=== PATIENT | female | born 1950 | race Caucasian/White ===

== ENCOUNTER → 2017-10-12 09:31 | Outpatient (CLI) | payer MEDICARE, SELFPAY ==
[2017-10-12 12:33] LABS: Color, Urine Yellow (Yellow); Glucose, Dipstick Normal (Normal); Ketone-Dipstick Negative (Negative); Leukocyte Esterase-Dipstick Negative /ul (Negative); Nitrite-Dipstick Negative (Negative); Occult Blood-Urine Negative /ul (Negative); Protein-Dipstick Negative (Negative); Urine Bilirubin Dipstick Negative (Negative); Urine Clarity Clear (Clear); Urine Urobilinogen Normal (Normal)
[2017-10-12 12:35] LABS: Absolute Lymphocyte Count 1.97 X10^3/ul (0.83-4.51); Absolute Neutrophil Count 4.3 X10^3/uL (2.0-7.7); Basophil# 0.03 X10^3/uL; Basophil% 0.4 % (0-1); Eosinophil# 0.16 X10^3/uL; Eosinophils% 2.3 % (0-5); Hematocrit 41.5 % (37-47); Hemoglobin 13.8 g/dl (12.0-15.0); Lymphocyte # 1.97 X10^3/ul (4.0); Lymphocyte % 28.6 % (19-41); Mean Corp Hgb Conc 33.3 g/gl (32-36); Mean Corpuscular Hgb 27.9 pg (27.0-32.0); Mean Corpuscular Volume 83.8 fL (81-99); Mean Platelet Vol. 11.7 fl (6.2-12.0); Monocyte# 0.46 X10^3/uL; Monocyte% 6.7 % (0-10); Neutrophil # 4.25 X10^3/uL (2.7-7.7); Neutrophil % 61.7 % (47-70); Platelet Count 227 K/mm3 (150-450); RBC Distribution Width CV 13.6 % (11.6-14.6); RBC Distribution Width SD 41.5 fl (35.1-43.9); Red Blood Count 4.95 M/mm3 (4.2-5.4); White Blood Count 6.9 K/mm3 (4.4-11.0)
[2017-10-12 12:36] LABS: POSITIVE COUNT NO; POSITIVE DIFFERENTIAL NO; POSITIVE MORPHOLOGY NO
[2017-10-12 12:51] LABS: ALB/GLOB Ratio 1.1 RATIO (0.9-2.4); AST(SGOT) 12 U/L (15-37); Alanine Aminotransfer ALT/SGPT 27 U/L (13-56); Albumin, Serum 3.7 g/dL (3.2-5.0); Alkaline Phosphatase 41 U/L (45-117); Anion Gap 8 (5-15); BUN 23 mg/dL (7-18); BUN/Creat Ratio 37.8 RATIO (10-20); Chloride 109 mmol/L (98-107); Cholesterol 162 mg/dL (200); Creatinine, Serum 0.61 mg/dL (0.55-1.02); EST Glomerular Filtration Rate 105 mL/min (>60); Est Glom Filt Rate - Afr Amer 127 mL/min (>60); Globulin 3.3 g/dL (2.2-4.2); Glucose 88 mg/dL (74-106); High Density Lipoprotein 59 mg/dL; Potassium 4.2 mmol/L (3.5-5.1); Sodium Level 143 mmol/L (136-145); Triglycerides 100 mg/dL; Very Low Density Lipoprotein 20 mg/dL (5-40)
== END ==
DX: Z00.00 Encounter for general adult medical examination without abnormal findings (principal); I10 Essential (primary) hypertension; E78.5 Hyperlipidemia, unspecified
CPT/HCPCS: 36415; 80053; 80061; 81002; 85025

== ENCOUNTER → 2017-11-14 09:57 | Outpatient (CLI) | payer MEDICARE, SELFPAY ==
--- NOTE | 2017-11-14 09:59 | HPBI_ITS ---
MAMMOGRAPHY - BILATERAL SCREENING 3-D MOIRA SYNTHESIS REASON FOR EXAM: Female, 67 years old. Bilateral Screening 3-D tomosynthesis PERTINENT HISTORY: History of benign breast biopsy.. TECHNIQUE: 2-D mammograms and 3-D Moira synthesis of the breast (s) were performed. CAD was performed. COMPARISON: 11/11/2016 FINDINGS: The breast composition is composed of scattered fibroglandular density. Scattered benign calcifications are seen. No dense spiculated masses or suspicious microcalcifications are identified. No architectural distortion is identified. There is no skin thickening or retraction. There has been no significant change since the prior study. There has been no significant change since the prior study. HPBI/SCREENING MAMM (CAD), BILAT IMPRESSION: No mammographic signs of malignancy. Routine yearly mammograms recommended. ASSESSMENT CATEGORY: BIRADS Category 2: Benign. A letter regarding these results will be sent to the patient by the facility within 30 days. FOLLOW UP RECOMMENDATION: Yearly follow up mammogram recommended. (A) Approximately 10% of breast cancers are not detected by mammography. A normal mammogram should not delay biopsy of a clinically suspicious abnormality. Electronically Signed: Willi Paige MD at 12:43 EDT , Service support ,
== END ==
DX: Z12.31 Encounter for screening mammogram for malignant neoplasm of breast (principal)
CPT/HCPCS: 77063; 77067

== ENCOUNTER → 2018-04-11 10:16 | Outpatient (CLI) | payer MEDICARE, SELFPAY ==
[2018-04-11 12:09] LABS: AST(SGOT) 15 U/L (15-37); Alanine Aminotransfer ALT/SGPT 20 U/L (13-56); Albumin, Serum 3.4 g/dL (3.2-5.0); Alkaline Phosphatase 39 U/L (45-117); Anion Gap 6 (5-15); BUN 16 mg/dL (7-18); BUN/Creat Ratio 22.9 RATIO (10-20); Bilirubin, Direct 0.08 mg/dL (0.00-0.30); Calcium,Total 8.4 mg/dL (8.5-10.1); Chloride 112 mmol/L (98-107); Cholesterol 160 mg/dL (200); EST Glomerular Filtration Rate 89 mL/min (>60); Est Glom Filt Rate - Afr Amer 108 mL/min (>60); Globulin 3.3 g/dL (2.2-4.2); Glucose 90 mg/dL (74-106); High Density Lipoprotein 56 mg/dL; Protein, Total 6.7 g/dL (6.4-8.2); Sodium Level 144 mmol/L (136-145); Triglycerides 152 mg/dL; Very Low Density Lipoprotein 30 mg/dL (5-40)
== END ==
PROVIDERS: Visit Provider Family Medicine
DX: E78.5 Hyperlipidemia, unspecified (principal); E87.6 Hypokalemia
CPT/HCPCS: 36415; 80048; 80061; 80076

== ENCOUNTER → 2018-10-09 08:34 | Outpatient (CLI) | payer MEDICARE, SELFPAY ==
[2018-10-09 10:42] LABS: AST(SGOT) 16 U/L (15-37); Alanine Aminotransfer ALT/SGPT 28 U/L (13-56); Albumin, Serum 3.5 g/dL (3.2-5.0); Alkaline Phosphatase 35 U/L (45-117); Bilirubin, Direct 0.11 mg/dL (0.00-0.30); Cholesterol 164 mg/dL (200); Globulin 3.3 g/dL (2.2-4.2); High Density Lipoprotein 56 mg/dL; Protein, Total 6.8 g/dL (6.4-8.2); Triglycerides 130 mg/dL; Very Low Density Lipoprotein 26 mg/dL (5-40)
== END ==
PROVIDERS: Referring Provider Family Medicine; Visit Provider Family Medicine
DX: E78.5 Hyperlipidemia, unspecified (principal); I10 Essential (primary) hypertension
CPT/HCPCS: 36415; 80061; 80076

== ENCOUNTER → 2018-11-20 12:11 | Outpatient (CLI) | payer MEDICARE, SELFPAY ==
--- NOTE | 2018-11-20 12:12 | BI_ITS ---
MAMMOGRAPHY - BILATERAL SCREENING REASON FOR EXAM: Female, 68 years old. Routine annual screening examination. PERTINENT HISTORY: Non-contributory. Remote left stereotactic breast biopsy. TECHNIQUE: Digital bilateral breast johnnie (3D mammographic acquisition) in the CC and MLO projections. 2-D mediolateral oblique (MLO) and craniocaudad (CC) views of both breasts were obtained. CAD: Full Field Digital Mammography with Computer Added Detection was performed. COMPARISON: Comparison is made with prior study dated November 14, 2017 and November 11, 2016. FINDINGS: Breast Composition: There are scattered areas of fibroglandular density. There are no dominant masses or suspicious calcifications. Stable benign-appearing bilateral axillary lymph nodes. No other significant abnormalities are identified. There has been no significant change since the prior study. BI/SCREENING MAMM (CAD), BILAT IMPRESSION: Stable bilateral screening mammogram. Yearly follow-up mammogram recommended. (A) ASSESSMENT CATEGORY: BIRADS Category 2: Benign. A letter regarding these results will be sent to the patient by the facility within 30 days. Approximately 10% of breast cancers are not detected by mammography. A normal mammogram should not delay biopsy of a clinically suspicious abnormality. [id number] Electronically Signed: Ck Salamanca, at 14:24 EDT , Service support ,
== END ==
PROVIDERS: Referring Provider Family Medicine; Visit Provider Family Medicine
DX: Z12.31 Encounter for screening mammogram for malignant neoplasm of breast (principal)
CPT/HCPCS: 77063; 77067

== ENCOUNTER → 2019-04-10 | Outpatient (CLI) | payer MEDICARE, SELFPAY ==
[2019-04-10 10:20] LABS: Absolute Lymphocyte Count 1.95 X10^3/uL (0.83-4.51); Absolute Neutrophil Count 5.2 X10^3/uL (2.0-7.7); Basophil# 0.07 X10^3/uL; Basophil% 0.9 % (0-1); Eosinophil# 0.18 X10^3/uL; Eosinophils% 2.3 % (0-5); Hematocrit 43.9 % (37-47); Lymphocyte # 1.95 X10^3/ul (4.0); Lymphocyte % 24.6 % (19-41); Mean Corp Hgb Conc 31.9 g/dL (32-36); Mean Corpuscular Hgb 27.3 pg (27.0-32.0); Mean Corpuscular Volume 85.7 fL (81-99); Mean Platelet Vol. 11.7 fl (6.2-12.0); Monocyte# 0.51 X10^3/uL; Monocyte% 6.4 % (0-10); NRBC Flagged by Analyzer 0 % (0-5); Neutrophil % 65.4 % (47-70); Platelet Count 212 K/mm3 (150-450); RBC Distribution Width CV 13.6 % (11.6-14.6); RBC Distribution Width SD 42.5 fl (35.1-43.9); Red Blood Count 5.12 M/mm3 (4.2-5.4); White Blood Count 7.9 K/mm3 (4.4-11.0)
[2019-04-10 10:42] LABS: Color, Urine Yellow (Yellow); Glucose, Dipstick Normal (Normal); Ketone-Dipstick Negative (Negative); Leukocyte Esterase-Dipstick 25 /ul (Negative); Nitrite-Dipstick Negative (Negative); Occult Blood-Urine Negative /ul (Negative); Protein-Dipstick Negative (Negative); Urine Bilirubin Dipstick Negative (Negative); Urine Clarity Sl. Cloudy (Clear); Urine Urobilinogen Normal (Normal)
[2019-04-10 10:53] LABS: ALB/GLOB Ratio 1.1 RATIO (0.9-2.4); AST(SGOT) 14 U/L (15-37); Alanine Aminotransfer ALT/SGPT 25 U/L (13-56); Albumin, Serum 3.4 g/dL (3.2-5.0); Alkaline Phosphatase 34 U/L (45-117); Anion Gap 6 (5-15); BUN 14 mg/dL (7-18); BUN/Creat Ratio 20.5 RATIO (10-20); Calcium,Total 8.8 mg/dL (8.5-10.1); Chloride 113 mmol/L (98-107); Cholesterol 151 mg/dL (200); Creatinine, Serum 0.68 mg/dL (0.55-1.02); EST Glomerular Filtration Rate 92 mL/min (>60); Est Glom Filt Rate - Afr Amer 111 mL/min (>60); Globulin 3.2 g/dL (2.2-4.2); Glucose 97 mg/dL (74-106); High Density Lipoprotein 52 mg/dL; Potassium 3.9 mmol/L (3.5-5.1); Protein, Total 6.6 g/dL (6.4-8.2); Sodium Level 144 mmol/L (136-145); Triglycerides 138 mg/dL; Very Low Density Lipoprotein 28 mg/dL (5-40)
== END | disposition home or self-care (01) ==
LOC: MTLAB 08:09
PROVIDERS: Referring Provider Family Medicine; Visit Provider Family Medicine
DX: Z00.00 Encounter for general adult medical examination without abnormal findings (principal); I10 Essential (primary) hypertension; E78.5 Hyperlipidemia, unspecified
CPT/HCPCS: 36415; 80053; 80061; 81002; 85025

== ENCOUNTER 2019-10-10 11:23 | Emergency (ER) | payer MEDICARE, SELFPAY ==
[2019-10-10 11:23] VITALS: BP 201/83; PULSE 73; RESP 16; TEMP 36.6; O2SAT 96; BMI 38.9
--- NOTE | 2019-10-10 11:39 | RAD_ITS ---
STUDY: X-RAY - LEFT KNEE REASON FOR EXAM: Female, 69 years old. PAIN S/P FALL TECHNIQUE: 4 view(s) of the knee. COMPARISON: None. FINDINGS: Normal visualized distal femur. Normal visualized proximal tibia and fibula. Normal proximal tibiofibular articulation. 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 Normal lateral femorotibial compartment. Normal patellofemoral articulation. There is a moderate volume joint effusion. The soft tissue structures are unremarkable. RAD/Knee 4 or More Views IMPRESSION: Effusion, as described above. MRI may be useful. Electronically Signed: Rinku Baig MD at 12:46 EST Tel , Service support ,
--- NOTE | 2019-10-10 11:43 | ED.VIS.GEN ---
History of Present Illness Chief Complaint: Lower Extremity Injury Informant: Patient Onset: Yesterday Context: Gradual Onset Timing: Continuous Current Severity: Moderate Maximum Severity: Moderate Narrative: The patient is a 69-year-old female on no anticoagulants that presents to the emergency department with left knee injury. Patient was in her normal state of health. She was at her daughter's apartment yesterday. She was trying to get down off the stairs. She tripped over a mat and landed on her right side with her left knee twisted underneath her. She did not strike her head or lose consciousness. She states the pain is actually improved today, but she still had a lot of tenderness in her knee especially with bearing weight. She is otherwise been in her normal state of health. Prior similar symptoms: No Recent Illness/Hospitalization: No Past Medical History - Allergies and Home Meds Allergies/Adverse Reactions: Allergies Penicillins Allergy (Verified 10/10/19 11:25) Tisha Primary Care Physician: Amanda Brown DO [STAFF PHYSICIAN] - Prior records reviewed: Yes Past Medical History: - - Hypertension Surgical History: noncontributory Smoking Status: Current every day smoker Review of Systems General: Denies: Chills, Fever, Sweats Eyes: Denies: Visual changes - bilaterally, Diplopia ENT: Denies: Rhinorrhea, Sore throat Cardiovascular: Denies: Chest pain, Palpitations Respiratory: Denies: Dyspnea, Cough, Dyspnea on exertion Gastrointestinal: Denies: Abdominal pain, Nausea, Vomiting, Diarrhea, Melena, Hematochezia Genitourinary: Denies: Dysuria, Hematuria, Frequency Musculoskeletal: Denies: Back pain, Extremity Pain Skin: Denies: Rash, Wounds Neurological: Denies: Headache, Weakness, Numbness Physical Exam Vital Signs/Narrative: Vital Signs Temp Pulse Resp BP Pulse Ox 10/10/19 11:23 97.8 F 73 16 201/83 H 96 Inital Vital Signs reviewed: Yes General: Well nourished, Well developed, No Acute Distress Head: Normocephalic, Atraumatic Eyes: Perrl, EOMI ENT: Moist mucous membranes, No rhinorrhea Neck: Supple, Nontender Cardiovascular: Regular rate, Regular rhythm, No murmurs Respiratory: No distress, CTA bilaterally, Chest nontender Abdomen: Soft, Nontender, Nondistended, Normal bowel sounds Back: Nontender, Normal Inspection Extremities: Tenderness - Tenderness over the left medial compartment of the knee. Extension is preserved. No gross laxity. Normal pulses. Small contusion. Skin: Normal color, No rash Neurological: Alert, Oriented x3, Cranial nerves II-XII grossly intact, Normal Strength, Normal Sensation Psychological: Normal affect, Normal Mood Diagnostic/Tx/Re-eval Clinical Impression(s) from Imaging Studies Knee X-Ray 10/10/19 11:39 IMPRESSION: Effusion, as described above. MRI may be useful. Electronically Signed: Rinku Baig MD at 12:46 EST Tel , Service support , - Medical Decision Making The patient presents with left knee injury. She twisted her knee underneath her. She did not land directly on it. She does have a small effusion but her extension is preserved. Plain films were obtained without evidence of acute fracture. This does confirm the small to moderate-sized effusion. There is no evidence of infectious process. I do not feel this joint needs drained. Patient was placed in an Bernardo wrap. She is able to bear weight. She will be given outpatient orthopedic follow-up as she may have underlying meniscus or ligamentous damage. There is no gross laxity of the knee. Comfortable with this plan of care. Impression 1. Left knee sprain with effusion ED Disposition - Plan for ED Patient: Instructions: Knee Effusion Referrals: Amanda Brown DO [STAFF PHYSICIAN] -
[2019-10-10 13:09] VITALS: BP 189/87
== END 2019-10-10 13:09 | disposition home or self-care (01) ==
LOC: ED 12:21
PROVIDERS: Emergency Provider Emergency Medicine
DX: S83.92XA Sprain of unspecified site of left knee, initial encounter (principal); I10 Essential (primary) hypertension; W18.09XA Striking against other object with subsequent fall, initial encounter; F17.210 Nicotine dependence, cigarettes, uncomplicated; Z79.899 Other long term (current) drug therapy
CPT/HCPCS: 73564; 99282

== ENCOUNTER → 2019-10-12 09:27 | Outpatient (CLI) | payer MEDICARE, SELFPAY ==
[2019-10-10 11:23] VITALS: BMI 38.9
[2019-10-12 13:17] LABS: AST(SGOT) 14 U/L (15-37); Alanine Aminotransfer ALT/SGPT 30 U/L (13-56); Albumin, Serum 3.4 g/dL (3.2-5.0); Alkaline Phosphatase 35 U/L (45-117); Anion Gap 4 (5-15); BUN 13 mg/dL (7-18); Calcium,Total 9.1 mg/dL (8.5-10.1); Chloride 112 mmol/L (98-107); Cholesterol 179 mg/dL (200); Creatinine, Serum 0.68 mg/dL (0.55-1.02); EST Glomerular Filtration Rate 91 mL/min (>60); Est Glom Filt Rate - Afr Amer 110 mL/min (>60); Globulin 3.5 g/dL (2.2-4.2); Glucose 84 mg/dL (74-106); High Density Lipoprotein 60 mg/dL; Protein, Total 6.9 g/dL (6.4-8.2); Sodium Level 144 mmol/L (136-145); Triglycerides 163 mg/dL; Very Low Density Lipoprotein 33 mg/dL (5-40)
== END ==
PROVIDERS: Referring Provider Family Medicine; Visit Provider Family Medicine
DX: E78.5 Hyperlipidemia, unspecified (principal); E87.5 Hyperkalemia
CPT/HCPCS: 36415; 80053; 80061

== ENCOUNTER → 2020-01-25 12:49 | Outpatient (CLI) | payer MEDICARE, SELFPAY ==
--- NOTE | 2020-01-25 12:51 | BI_ITS ---
MAMMOGRAPHY - BILATERAL SCREENING REASON FOR EXAM: Female, 69 years old. Routine annual screening examination. PERTINENT HISTORY: Non-contributory. There are multiple left stereotactic breast biopsy. TECHNIQUE: Digital bilateral breast moira (3D mammographic acquisition) in the CC and MLO projections. 2-D mediolateral oblique (MLO) and craniocaudad (CC) views of both breasts were obtained. CAD: Full Field Digital Mammography with Computer Added Detection was performed. COMPARISON: Comparison is made with prior examination dated November 20, 2018 and November 14, 2017. FINDINGS: Breast Composition: There are scattered areas of fibroglandular density. There are no dominant masses or suspicious calcifications. Stable benign-appearing bilateral axillary lymph nodes. No other significant abnormalities are identified. There has been no significant change since the prior study. BI/SCREEN MAMM (CAD) W/MOIRA BILAT IMPRESSION: Stable bilateral screening mammogram. Yearly follow-up mammogram recommended. (A) ASSESSMENT CATEGORY: BIRADS Category 2: Benign. A letter regarding these results will be sent to the patient by the facility within 30 days. Approximately 10% of breast cancers are not detected by mammography. A normal mammogram should not delay biopsy of a clinically suspicious abnormality. [id number] Electronically Signed: Ck Salamanca, at 14:07 EDT , Service support ,
== END ==
PROVIDERS: Referring Provider Family Medicine; Visit Provider Family Medicine
DX: Z12.31 Encounter for screening mammogram for malignant neoplasm of breast (principal)
CPT/HCPCS: 77063; 77067

== ENCOUNTER → 2020-04-11 09:48 | Outpatient (CLI) | payer MEDICARE, SELFPAY ==
[2020-04-11 12:17] LABS: Absolute Lymphocyte Count 2.05 X10^3/uL (0.83-4.51); Absolute Neutrophil Count 4.5 X10^3/uL (2.0-7.7); Basophil# 0.03 X10^3/uL; Basophil% 0.4 % (0-1); Eosinophil# 0.14 X10^3/uL; Eosinophils% 1.9 % (0-5); Hematocrit 47.2 % (37-47); Lymphocyte # 2.05 X10^3/ul (4.0); Lymphocyte % 28.6 % (19-41); Mean Corp Hgb Conc 31.8 g/dL (32-36); Mean Corpuscular Hgb 27.6 pg (27.0-32.0); Mean Corpuscular Volume 86.8 fL (81-99); Mean Platelet Vol. 11.4 fl (6.2-12.0); Monocyte# 0.46 X10^3/uL; Monocyte% 6.4 % (0-10); NRBC Flagged by Analyzer 0 % (0-5); Neutrophil # 4.46 X10^3/uL (2.7-7.7); Neutrophil % 62.1 % (47-70); Platelet Count 261 K/mm3 (150-450); RBC Distribution Width CV 13.7 % (11.6-14.6); RBC Distribution Width SD 43.1 fl (35.1-43.9); Red Blood Count 5.44 M/mm3 (4.2-5.4); White Blood Count 7.2 K/mm3 (4.4-11.0)
[2020-04-11 12:21] LABS: Color, Urine Yellow (Yellow); Glucose, Dipstick Normal (Normal); Ketone-Dipstick Negative (Negative); Leukocyte Esterase-Dipstick Negative /ul (Negative); Nitrite-Dipstick Negative (Negative); Occult Blood-Urine Negative /ul (Negative); Protein-Dipstick Negative (Negative); Urine Bilirubin Dipstick Negative (Negative); Urine Clarity Sl. Cloudy (Clear); Urine Urobilinogen Normal (Normal)
[2020-04-11 12:48] LABS: AST(SGOT) 16 U/L (15-37); Alanine Aminotransfer ALT/SGPT 29 U/L (13-56); Albumin, Serum 3.5 g/dL (3.2-5.0); Alkaline Phosphatase 37 U/L (45-117); Anion Gap 4 (5-15); BUN 13 mg/dL (7-18); BUN/Creat Ratio 20.9 RATIO (10-20); Calcium,Total 8.6 mg/dL (8.5-10.1); Chloride 111 mmol/L (98-107); Cholesterol 169 mg/dL (200); Creatinine, Serum 0.62 mg/dL (0.55-1.02); EST Glomerular Filtration Rate 101 mL/min (>60); Est Glom Filt Rate - Afr Amer 123 mL/min (>60); Globulin 3.4 g/dL (2.2-4.2); Glucose 89 mg/dL (74-106); High Density Lipoprotein 53 mg/dL; Protein, Total 6.9 g/dL (6.4-8.2); Sodium Level 141 mmol/L (136-145); Triglycerides 167 mg/dL; Very Low Density Lipoprotein 33 mg/dL (5-40)
== END ==
PROVIDERS: Referring Provider Family Medicine; Visit Provider Family Medicine
DX: Z00.00 Encounter for general adult medical examination without abnormal findings (principal); I10 Essential (primary) hypertension; E78.5 Hyperlipidemia, unspecified
CPT/HCPCS: 36415; 80053; 80061; 81002; 85025

== ENCOUNTER → 2020-10-03 08:51 | Outpatient (CLI) | payer MEDICARE, SELFPAY ==
[2020-10-03 10:44] LABS: ALB/GLOB Ratio 1.1 RATIO (0.9-2.4); AST(SGOT) 20 U/L (15-37); Alanine Aminotransfer ALT/SGPT 31 U/L (13-56); Albumin, Serum 3.6 g/dL (3.2-5.0); Alkaline Phosphatase 40 U/L (45-117); Anion Gap 5 (5-15); BUN 14 mg/dL (7-18); BUN/Creat Ratio 19.5 RATIO (10-20); Calcium,Total 9.1 mg/dL (8.5-10.1); Chloride 109 mmol/L (98-107); Cholesterol 166 mg/dL (200); Creatinine, Serum 0.72 mg/dL (0.55-1.02); EST Glomerular Filtration Rate 86 mL/min (>60); Est Glom Filt Rate - Afr Amer 104 mL/min (>60); Globulin 3.4 g/dL (2.2-4.2); Glucose 99 mg/dL (74-106); High Density Lipoprotein 55 mg/dL; Potassium 4.3 mmol/L (3.5-5.1); Sodium Level 141 mmol/L (136-145); Triglycerides 160 mg/dL; Very Low Density Lipoprotein 32 mg/dL (5-40)
== END ==
PROVIDERS: Referring Provider Family Medicine; Visit Provider Family Medicine
DX: I10 Essential (primary) hypertension (principal); E78.5 Hyperlipidemia, unspecified
CPT/HCPCS: 36415; 80053; 80061

== ENCOUNTER → 2021-01-26 10:52 | Outpatient (CLI) | payer MEDICARE, SELFPAY ==
--- NOTE | 2021-01-26 10:55 | BI_ITS ---
MAMMOGRAPHY - BILATERAL SCREENING REASON FOR EXAM: Female, 70 years old. Routine annual screening examination. PERTINENT HISTORY: Non-contributory. Remote left stereotactic breast biopsy. TECHNIQUE: Digital bilateral breast moira (3D mammographic acquisition) in the CC and MLO projections. 2-D mediolateral oblique (MLO) and craniocaudad (CC) views of both breasts were obtained. CAD: Full Field Digital Mammography with Computer Added Detection was performed. COMPARISON: Comparison is made with prior study dated 01/25/2020 and 11/20/2018. FINDINGS: Breast Composition: There are scattered areas of fibroglandular density. There are no dominant masses or suspicious calcifications. Stable benign-appearing bilateral axillary lymph nodes. No other significant abnormalities are identified. There has been no significant change since the prior study. BI/SCRN MAMM (CAD)W/MOIRA BILAT IMPRESSION: Stable bilateral screening mammogram. Yearly follow-up mammogram recommended. (A) ASSESSMENT CATEGORY: BIRADS Category 2: Benign. A letter regarding these results will be sent to the patient by the facility within 30 days. Approximately 10% of breast cancers are not detected by mammography. A normal mammogram should not delay biopsy of a clinically suspicious abnormality. [id number] Electronically Signed: Ck Salamanca MD at 12:12 EDT , Service support ,
== END ==
PROVIDERS: Referring Provider Family Medicine; Visit Provider Family Medicine
DX: Z12.31 Encounter for screening mammogram for malignant neoplasm of breast (principal)
CPT/HCPCS: 77063; 77067

== ENCOUNTER → 2021-03-30 08:42 | Outpatient (CLI) | payer MEDICARE, SELFPAY ==
[2021-03-30 10:53] LABS: ALB/GLOB Ratio 1.2 RATIO (0.9-2.4); AST(SGOT) 20 U/L (15-37); Alanine Aminotransfer ALT/SGPT 30 U/L (13-56); Albumin, Serum 3.7 g/dL (3.2-5.0); Alkaline Phosphatase 33 U/L (45-117); Anion Gap 5 (5-15); BUN 21 mg/dL (7-18); BUN/Creat Ratio 29.3 RATIO (10-20); Chloride 109 mmol/L (98-107); Cholesterol 174 mg/dL (200); Creatinine, Serum 0.72 mg/dL (0.55-1.02); EST Glomerular Filtration Rate 86 mL/min (>60); Est Glom Filt Rate - Afr Amer 104 mL/min (>60); Globulin 3.1 g/dL (2.2-4.2); Glucose 102 mg/dL (74-106); High Density Lipoprotein 59 mg/dL; Protein, Total 6.8 g/dL (6.4-8.2); Sodium Level 142 mmol/L (136-145); Triglycerides 142 mg/dL; Very Low Density Lipoprotein 28 mg/dL (5-40)
== END ==
PROVIDERS: Referring Provider Family Medicine; Visit Provider Family Medicine
DX: I10 Essential (primary) hypertension (principal); E78.5 Hyperlipidemia, unspecified
CPT/HCPCS: 36415; 80053; 80061

== ENCOUNTER 2021-08-31 09:53 | Outpatient (CLI) | payer MEDICARE, SELFPAY ==
[2021-08-31 12:09] LABS: Absolute Lymphocyte Count 2.07 X10^3/uL (0.83-4.51); Basophil# 0.03 X10^3/uL; Basophil% 0.4 % (0-1); Eosinophil# 0.13 X10^3/uL; Eosinophils% 1.9 % (0-5); Hematocrit 45.5 % (37-47); Hemoglobin 14.7 g/dL (12.0-15.0); Lymphocyte # 2.07 X10^3/ul (0.83-4.51); Lymphocyte % 30.6 % (19-41); Mean Corp Hgb Conc 32.3 g/dL (32-36); Mean Corpuscular Hgb 27.7 pg (27.0-32.0); Mean Corpuscular Volume 85.8 fL (81-99); Mean Platelet Vol. 10.6 fl (6.2-12.0); Monocyte# 0.47 X10^3/uL; NRBC Flagged by Analyzer 0 % (0-5); Neutrophil # 4.04 X10^3/uL (2.7-7.7); Neutrophil % 59.8 % (47-70); Platelet Count 228 K/mm3 (150-450); RBC Distribution Width CV 13.6 % (11.6-14.6); RBC Distribution Width SD 42.7 fl (35.1-43.9); White Blood Count 6.8 K/mm3 (4.4-11.0)
== END 2021-08-31 23:59 | disposition short-term general hospital (02) ==
LOC: MTLAB 09:54
PROVIDERS: Referring Provider Family Medicine; Visit Provider Family Medicine
DX: Z00.00 Encounter for general adult medical examination without abnormal findings (principal); I10 Essential (primary) hypertension; E78.5 Hyperlipidemia, unspecified
CPT/HCPCS: 36415; 85025

== ENCOUNTER 2022-04-08 11:00 | Emergency (ER) | payer MEDICARE, SELFPAY ==
[2022-04-08 11:02] VITALS: BP 212/84; PULSE 72; RESP 18; TEMP 36.1; O2SAT 96; BMI 43.7
--- NOTE | 2022-04-08 11:14 | EKG12_ITS ---
Test Reason : SOB Blood Pressure : / mmHG Vent. Rate : 078 BPM Atrial Rate : 078 BPM P-R Int : 132 ms QRS Dur : 092 ms QT Int : 382 ms P-R-T Axes : 035 040 068 degrees QTc Int : 435 ms Normal sinus rhythm Incomplete right bundle branch block Borderline ECG Confirmed by CHANDA RANDOLPH, RALEIGH ([id number]), business editor BRAYAN MARCELO ([id number]) on 04/09/2022 9:42:44 AM Referred By: BRISA Confirmed By:RALEIGH ARMAS MD
--- NOTE | 2022-04-08 11:15 | EDS_ITS ---
HPI History of Present Illness Chief Complaint: Shortness of Breath Detail of Chief Complaint: Exertional dyspnea and hypertension Informant: patient and spouse/S.O. Narrative Narrative: Patient presents to the emergency department with several month history of shortness of breath with activity and exertion. Patient was seen for her annual exam by her PCP a week ago and noted that her blood pressure was elevated and was asked to track her blood pressure at home. Patient states she just remembered again yesterday and they checked her blood pressure and it was 221/99. Today her pressure at home was 209/99. Primary care physician balbina ecotimended patient be evaluated the emergency department. Patient denies headache or chest pain. She does describe exertional dyspnea and lack of energy for several months. She denies chest pain or pressure or heaviness. She does intermittently describe some discomfort in her left arm. She has no heart history. Patient does describe fatigue and falling asleep easily. Prior similar symptoms: No PFSH PFSH Home Medications fenofibrate nanocrystallized 145 mg tablet 145 mg PO QHS 10/10/19 [History Last Taken Unknown] lisinopril 10 mg tablet 10 mg PO DAILY 10/10/19 [History Last Taken Unknown] simvastatin 20 mg tablet 20 mg PO DAILY 10/10/19 [History Last Taken Unknown] amlodipine 5 mg tablet (Norvasc) 5 mg PO DAILY #30 tabs 04/08/22 [Rx Last Taken Unknown] lisinopril 20 mg tablet 20 mg PO DAILY #30 tabs 04/08/22 [Rx Last Taken Unknown] Allergy/AdvReac Type Severity Reaction Status Date / Time Penicillins Allergy Hives Verified 04/08/22 11:00 red dye Allergy Itching Verified 04/08/22 11:02 Social History Smoking Status: Former smoker ROS ROS ED Review of Systems ROS Unobtainable: other Constitutional Constitutional ED: Reports lethargy; Denies chills, fever(s), sweats or weight loss Eyes Eyes: Denies blurry vision, change in vision or diplopia ENT ENT ED: Denies rhinorrhea or sore throat Cardiovascular Cardiovascular: Denies chest pain, orthopnea or racing heartbeat Respiratory/Chest Respiratory/Chest: Reports dyspnea and dyspnea on exertion; Denies cough, orthopnea or sputum Gastrointestinal Gastrointestinal: Denies abdominal pain, diarrhea, nausea or vomiting Genitourinary Genitourinary ED: Denies dysuria, hematuria or urinary frequency Musculoskeletal Musculoskeletal: Denies arthralgias, back pain, myalgias or neck pain Integumentary Denies abscess, Abrasions or rash Neurologic Neurologic: Reports weakness; Denies headache(s) Psychiatric Psychiatric: Denies anxiety, depression or suicidal thoughts Endocrine Endocrinology: Denies polydipsia, polyphagia or polyuria Hematologic/Lymphatic Hematologic/Lymphatic: Denies easy bleeding, easy bruising or lymphadenopathy Allergic/Immunologic Allergic/Immunologic ED: Denies mouth swelling, tongue swelling or urticaria EXAM Physical Exam Const Vital Signs: 04/08/22 11:02 04/08/22 11:41 Temperature 97.0 F L Temperature Source Temporal Pulse Rate 72 Respiratory Rate 18 Respiratory Effort Normal Non-Labored Respiratory Depth Normal Respiratory Pattern Normal Blood Pressure 212/84 H Blood Pressure Mean 126 Pulse Ox 96 Oxygen Delivery Method Room Air Room Air Positive well nourished and well developed General Appearance ED: well developed and NAD HEENT Reports TM's clear and moist mucous membranes normocephalic and atraumatic; Negative for trauma or tenderness Tympanic Membrane ED: Yes TM's clear Eyes PERRL and EOMs intact bilaterally General Eye ED: Negative for pale conjunctiva or scleral icterus Neck no lymphadenopathy, supple and no JVD General: Negative for tenderness Chest Wall inspection of chest normal and palpation of chest normal Chest: Negative for tenderness Resp normal respiratory effort and clear to auscultation bilaterally Effort and Inspection: Negative for respiratory distress or pain with movement Auscultation: Negative for rhonchi, wheezes or diminished lung sounds Cardio regular rate, regular rhythm, S1 normal heart sound, S2 normal heart sound and no murmurs Peripheral Pulses: pulses 2+ throughout GI normal to inspection, nondistended, normoactive bowel sounds, soft to palpation, non-tender, non-distended and no masses Back/Spine no CVA tenderness and no thoracic nor lumbar tenderness Extremity normal to inspection General Extremety ED: Negative for edema General Extremity: Negative for edema Neuro oriented x3, CN's II-XII intact bilaterally, no sensory deficits noted and gait normal Sensorium / Orientation: awake, alert, oriented to person, oriented to place and oriented to time Motor Exam: strength 5/5 throughout and strength abnormal Psych mental status grossly normal Skin no rashes or lesions noted and no wounds MDM MDM MDM Narrative Medical decision making narrative: IV line established on arrival. Patient placed on a cafeteria monitor. EKG and lab work-up unremarkable. Urinalysis was normal. At this point there is no signs of endorgan damage. Patient case was discussed with her primary care ph ysician Dr. Scott who recommended increasing her lisinopril to 20 mg daily and adding 5 mg of Norvasc daily. Patient was given a dose of Norvasc in the emergency department. Patient to follow-up with her primary care physician and keep a journal of her blood pressures. Etiology of her exertional dyspnea is unclear although she thought it might be related to her weight gain. She is not been having chest pain. She is got normal EKG and cardiac enzymes and feel she is low risk for acute coronary syndrome. She will follow-up with her primary care physician regarding this as well. Lab Data Attestation: I reviewed the patient's lab results. Labs: Laboratory Results - last 24 hr 04/08/22 04/08/22 04/08/22 11:20 11:35 11:35 WBC 7.2 RBC 5.00 Hgb 13.8 Hct 43.0 MCV 86.0 MCH 27.6 MCHC 32.1 RDW Std Deviation 41.5 RDW Coeff of Arti 13.3 Plt Count 246 MPV 11.0 Immature Gran % (Auto) 0.700 Neut % (Auto) 64.6 Lymph % (Auto) 27.3 Person % (Auto) 5.4 Eos % (Auto) 1.4 Baso % (Auto) 0.6 Absolute Neuts (auto) 4.6 Absolute Lymphs (auto) 1.96 Nucleated RBC % 0 Sodium 143 Potassium 3.9 Chloride 111 H Carbon Dioxide 28.0 Anion Gap 4 L BUN 21 H Creatinine 0.73 Estim Creat Clear Calc 41.99 Est GFR (MDRD) Af Amer 102 Est GFR (MDRD) Non-Af 84 BUN/Creatinine Ratio 28.9 H Glucose 150 H Calcium 9.3 Troponin I High Sens 4 Urine Color Yellow Urine Clarity Sl. Cloudy Urine pH 6.0 Ur Specific [place] 1.010 Urine Protein Negative Urine Glucose (UA) Normal Urine Ketones Negative Urine Occult Blood Negative Urine Nitrite Negative Urine Bilirubin Negative Urine Urobilinogen Normal Ur Leukocyte Esterase Negative Urine RBC 0 SEEN Urine WBC 0 SEEN Ur Squamous Epith Cells 0-5 SEEN Urine Bacteria 0 SEEN Urine Mucus 0 SEEN Radiography Diagnostic Testing: Clinical Impression(s) from Imaging Studies Chest X-Ray 04/08/22 11:45 IMPRESSION: No acute abnormality is seen. Electronically Signed: Ck Salamanca MD at 12:11 EDT , 1 view chest x-ray obtained interpreted by myself no acute disease process. Radiology in agreement. EKG Initial EKG: Attestation: I personally reviewed and interpreted this EKG as follows: Comments: Sinus rhythm with a rate of 78 bpm with no acute ST segment changes Discharge Plan Triage Chief Complaint: Shortness of Breath Other Complaint: Hypertension ED Provider: Jackie Geiger Dx/Rx/DC Orders Clinical Impression: Hypertension, Exertional dyspnea Instructions: ED Hypertension, Established Prescriptions: New amlodipine [Norvasc] 5 mg tablet 5 mg PO DAILY Qty: 30 0RF lisinopril 20 mg tablet 20 mg PO DAILY Qty: 30 0RF No Action simvastatin 20 MG tablet 20 mg PO DAILY lisinopril 10 MG tablet 10 mg PO DAILY fenofibrate nanocrystallized 145 MG tablet 145 mg PO QHS Primary Care Provider: Rigo Scott Referrals: Rigo Scott [Primary Care Provider] - 5-7 Days Disposition Disposition: Home, Self Care
[2022-04-08 11:40] LABS: Bacteria 0 SEEN /hpf (None Seen); Mucous, Urine 0 SEEN /hpf (<or=2+); Red Blood Cells-Urine 0 SEEN /hpf (0-5); White Blood Cells 0 SEEN /hpf (0-5)
--- NOTE | 2022-04-08 11:45 | RAD_ITS ---
STUDY: X-RAY CHEST REASON FOR EXAM: Female, 71 years old. Hypertension. TECHNIQUE: Single AP portable view of the chest. COMPARISON: None. FINDINGS: EKG electrodes are seen. The lungs are clear and expanded. There is no demonstrated pleural abnormality. Normal size heart. Normal mediastinum and janet. Normal visualized pulmonary arteries. There is atherosclerotic calcification of the aortic arch with tortuosity. Normal visualized thoracic spine. Normal visualized ribs, clavicles, and shoulders. There is no demonstrated abnormality of the visualized soft tissue structures of the upper abdomen. RAD/Chest 1 View (Portable) IMPRESSION: No acute abnormality is seen. Electronically Signed: Ck Salamanca MD at 12:11 EDT ,
[2022-04-08 11:46] LABS: Color, Urine Yellow (Yellow); Glucose, Dipstick Normal (Normal); Ketone-Dipstick Negative (Negative); Leukocyte Esterase-Dipstick Negative /ul (Negative); Nitrite-Dipstick Negative (Negative); Occult Blood-Urine Negative /ul (Negative); Protein-Dipstick Negative (Negative); Urine Bilirubin Dipstick Negative (Negative); Urine Clarity Sl. Cloudy (Clear); Urine Urobilinogen Normal (Normal)
[2022-04-08 11:46] LABS: Absolute Lymphocyte Count 1.96 X10^3/uL (0.83-4.51); Absolute Neutrophil Count 4.6 X10^3/uL (2.0-7.7); Basophil# 0.04 X10^3/uL; Basophil% 0.6 % (0-1); Eosinophils% 1.4 % (0-5); Hemoglobin 13.8 g/dL (12.0-15.0); Lymphocyte # 1.96 X10^3/ul (0.83-4.51); Lymphocyte % 27.3 % (19-41); Mean Corp Hgb Conc 32.1 g/dL (32-36); Mean Corpuscular Hgb 27.6 pg (27.0-32.0); Monocyte# 0.39 X10^3/uL; Monocyte% 5.4 % (0-10); NRBC Flagged by Analyzer 0 % (0-5); Neutrophil # 4.63 X10^3/uL (2.7-7.7); Neutrophil % 64.6 % (47-70); Platelet Count 246 K/mm3 (150-450); RBC Distribution Width CV 13.3 % (11.6-14.6); RBC Distribution Width SD 41.5 fl (35.1-43.9); White Blood Count 7.2 K/mm3 (4.4-11.0)
[2022-04-08 12:01] LABS: Anion Gap 4 (5-15); BUN 21 mg/dL (7-18); BUN/Creat Ratio 28.9 RATIO (10-20); Calcium,Total 9.3 mg/dL (8.5-10.1); Chloride 111 mmol/L (98-107); Creatinine, Serum 0.73 mg/dL (0.55-1.02); EST Glomerular Filtration Rate 84 mL/min (>60); Est Glom Filt Rate - Afr Amer 102 mL/min (>60); Estimated Creatinine Clearance 41.99 ml/min; Glucose 150 mg/dL (74-106); Potassium 3.9 mmol/L (3.5-5.1); Sodium Level 143 mmol/L (136-145); Troponin-I HS 4 pg/mL (3.0-54.0)
[2022-04-08 12:09] LABS: Squamous Epithelial Cells - UA 0-5 SEEN /hpf (5-10)
[2022-04-08] MEDS: amLODIPine 5 MG Tablet PO (13:14)
[2022-04-08 13:18] VITALS: BP 190/91; PULSE 65; RESP 18; O2SAT 99
== END 2022-04-08 13:18 | disposition home or self-care (01) ==
PROVIDERS: Emergency Provider Emergency Medicine; Visit Provider Emergency Medicine
DX: I10 Essential (primary) hypertension (principal); Z79.899 Other long term (current) drug therapy; Z87.891 Personal history of nicotine dependence
CPT/HCPCS: 71045; 80048; 81001; 84484; 85025; 93005; 99283; A4216

== ENCOUNTER → 2023-10-17 | Outpatient (CLI) | payer MEDICARE, SELFPAY ==
[2023-10-17 13:39] LABS: Absolute Lymphocyte Count 1.94 X10^3/uL (0.83-4.51); Absolute Neutrophil Count 5.7 X10^3/uL (2.0-7.7); Basophil# 0.05 X10^3/uL; Basophil% 0.6 % (0-1); Eosinophil# 0.16 X10^3/uL; Eosinophils% 1.9 % (0-5); Hematocrit 43.4 % (37-47); Hemoglobin 13.2 g/dL (12.0-15.0); Lymphocyte # 1.94 X10^3/ul (0.83-4.51); Lymphocyte % 22.8 % (19-41); Mean Corp Hgb Conc 30.4 g/dL (32-36); Mean Corpuscular Hgb 26.1 pg (27.0-32.0); Mean Corpuscular Volume 85.8 fL (81-99); Mean Platelet Vol. 11.1 fl (6.2-12.0); Monocyte# 0.63 X10^3/uL; Monocyte% 7.4 % (0-10); NRBC Flagged by Analyzer 0 % (0-5); Neutrophil # 5.69 X10^3/uL (2.7-7.7); Neutrophil % 66.7 % (47-70); Platelet Count 256 K/mm3 (150-450); RBC Distribution Width CV 14.1 % (11.6-14.6); RBC Distribution Width SD 43.8 fl (35.1-43.9); Red Blood Count 5.06 M/mm3 (4.2-5.4); White Blood Count 8.5 K/mm3 (4.4-11.0)
[2023-10-17 14:13] LABS: AST(SGOT) 16 U/L (15-37); Alanine Aminotransfer ALT/SGPT 31 U/L (13-56); Albumin, Serum 3.5 g/dL (3.2-5.0); Alkaline Phosphatase 36 U/L (45-117); Anion Gap 2 (5-15); BUN 24 mg/dL (7-18); BUN/Creat Ratio 31.5 RATIO (10-20); Calcium,Total 10.2 mg/dL (8.5-10.1); Chloride 106 mmol/L (98-107); Creatinine, Serum 0.76 mg/dL (0.55-1.02); EST Glomerular Filtration Rate 80 mL/min (>60); Est Glom Filt Rate - Afr Amer 96 mL/min (>60); Globulin 3.5 g/dL (2.2-4.2); Glucose 84 mg/dL (74-106); Potassium 4.1 mmol/L (3.5-5.1); Sodium Level 140 mmol/L (136-145); Thyroid Stim Hormone (TSH) 0.57 uIU/mL (0.358-3.74)
--- OUTSIDE RECORDS SUMMARY | 2023-10-17 20:54 | XMS RPT_ITS | CCD ---
Author Name Unknown Address [address] [place] [address] Organization [facility] Care Team Providers Care Toolmaker Name Role Phone Rigo Parker Unavailable Unavailable Unavailable Primary Care Provider Unavailabraham Parker MD, Rigo Wan Primary Care Provider Keith RANDOLPH, Rigo Wan Primary Care Provider Keith RANDOLPH, Rigo Wan Primary Care Provider Keith RANDOLPH, Rigo Wan Primary Care Provider Keith RANDOLPH, Rigo Wan Primary Care Provider RIGO PARKER Primary Care Unavailab le KEITHRIGO Referring Unavailab le KEITH, RIGO WAN Referring Unavailab le KEITH, RIGO WAN Primary Care Unavailab le KEITHRIGO Referring Unavailab le KEITH, RIGO WAN Primary Care Unavailab le KEITHRIGO Attending Unavailab le KEITH, RIGO WAN Primary Care Unavailab le KEITHRIGO Attending Unavailab le KEITH, RIGO WAN Primary Care Unavailab le KEITH, RIGO WAN Attending Unavailab le KEITH, RIGO WAN Primary Care Unavailab le KEITHRIGO Attending Unavailab le KEITH, RIGO WAN Primary Care Unavailab le Allergies Allergy Classification Reported Allergen(s) Allergy Type Date of Onset Reaction(s) Facility (20 sources) Contrast media; Translations: [RED DYE] Drug Allergy 03-17-2017 Unknown [facility] (3 sources) Penicillins; Translations: [PENICILLINS] Drug Allergy 03-17-2017 Unknown [facility] (18 sources) Penicillins Drug Allergy 03-17-2017 Unknown [facility] Medications Current Medications Medication Drug Class(es) Dates Sig (Normalized) Sig (Original) amLODIPine 10 mg oral tablet (19 sources) Dihydropyridine Calcium Channel Angelia Start: 10-27-2022 End: 01-31-2024 take 1 tablet by mouth once daily amLODIPine (NORVASC) 10 mg tablet Take 1 tablet by mouth once daily. 90 tablet 2 01/31/2023 01/31/2024 Active Completed/Discontinued Medications Medication Drug Class(es) Dates Sig (Normalized) Sig (Original) calcium carbonate 1500 mg / cholecalciferol 0.01 mg oral tablet (20 sources) Vitamin D Start: 03-17-2017 End: 10-06-2022 take 1 tablet by mouth twice daily calcium carbonate 600 mg-cholecalcifero l 400 units 600 mg-10 mcg (400 unit) tab Take 1 tablet by mouth twice daily. 180 tablet 3 10/06/2022 Active Problems Active Problems Problem Classification Problem Date Documented Da te Episodic/Chronic Disorders of lipid metabolism (20 sources) Hyperlipidemia; Translations: [Hyperlipidemia, unspecified] Onset: 03-17-2017 01-04-2022 Chronic Essential hypertension (20 sources) Benign hypertension; Translations: [Essential (primary) hypertension] Onset: 03-17-2017 01-04-2022 Chronic Malaise and fatigue (1 source) Fatigue; Translations: [Other fatigue] 04-06-2023 Episodic Nutritional deficiencies (3 sources) Vitamin D deficiency; Translations: [Vitamin D deficiency, unspecified] Onset: 04-06-2023 04-06-2023 Chronic Residual codes; unclassified (1 source) Bilateral lower limb edema; Translations: [Localized edema] 04-06-2023 Episodic Unclassified (1 source) Unknown / UNK(Unknown) Onset: 04-06-2017 Past or Other Problems Problem Classification Problem Date Documented Da te Episodic/Chronic Administrative/social admission (1 source) Other specified counseling; Translations: [Counseling regarding advanced directives] Onset: 10-06-2022 Episodic Fluid and electrolyte disorders (19 sources) Hypokalemia; Translations: [Hypokalemia] Onset: 04-05-2018 01-04-2022 Episodic Other connective tissue disease (19 sources) Pain in left foot; Translations: [Pain in left foot] Onset: 06-27-2019 01-04-2022 Episodic Other screening for suspected conditions (not mental disorders or infectious disease) (20 sources) Patient encounter status; Translations: [Encounter for screening for malignant neoplasm of colon] Onset: 10-06-2017 01-04-2022 Episodic Other skin disorders (19 sources) Inflamed seborrheic keratosis; Translations: [Inflamed seborrheic keratosis] Onset: 05-10-2019 01-04-2022 Episodic Other skin disorders (19 sources) Skin tag; Translations: [Other hypertrophic disorders of the skin] Onset: 05-10-2019 01-04-2022 Episodic Unclassified (1 source) E78.5 Onset: 04-06-2017 Results Test Name Value Interpretation Reference Range Facil ity Vital Signs Date Time Vital Sign Value Performing Clinician Faci lity 04-06-2023 10:04-0400 Body height 157.5 cm Rigo Parker MD Work Phone: [facility] 04-06-2023 10:04-0400 Body temperature 96.8 [degF] Rigo Parker MD Work Phone: [facility] 04-06-2023 10:04-0400 Body weight 111.58 kg Rigo Parker MD Work Phone: [facility] 04-06-2023 10:04-0400 Diastolic blood pressure 82 mm[Hg] Rigo Parker MD Work Phone: [facility] 04-06-2023 10:04-0400 Heart rate 70 /min Rigo Parker MD Work Phone: [facility] 04-06-2023 10:04-0400 Respiratory rate 18 /min Rigo Parker MD Work Phone: [facility] 04-06-2023 10:04-0400 SaO2% (BldA) [Mass fraction] 95 % Rigo Parker MD Work Phone: [facility] 04-06-2023 10:04-0400 Systolic blood pressure 132 mm[Hg] Rigo Parker MD Work Phone: [facility] 11-29-2022 09:36-0400 Body height 157.5 cm Rigo Parker MD Work Phone: [facility] 11-29-2022 09:36-0400 Body temperature 97.11 [degF] Rigo Parker MD Work Phone: [facility] 11-29-2022 09:36-0400 Body weight 110.45 kg Rigo Parker MD Work Phone: [facility] 11-29-2022 09:36-0400 Diastolic blood pressure 84 mm[Hg] Rigo Parker MD Work Phone: [facility] 11-29-2022 09:36-0400 Heart rate 68 /min Rigo Parker MD Work Phone: [facility] 11-29-2022 09:36-0400 Respiratory rate 18 /min Rigo Parker MD Work Phone: [facility] 11-29-2022 09:36-0400 SaO2% (BldA) [Mass fraction] 96 % Rigo Parker MD Work Phone: [facility] 11-29-2022 09:36-0400 Systolic blood pressure 138 mm[Hg] Rigo Parker MD Work Phone: [facility] 10-27-2022 14:42-0500 Diastolic blood pressure 94 mm[Hg] Rigo Parker MD Work Phone: [facility] 10-27-2022 14:42-0500 Systolic blood pressure 152 mm[Hg] Rigo Parker MD Work Phone: [facility] 10-27-2022 14:39-0500 Body height 157.5 cm Rigo Parker MD Work Phone: [facility] 10-27-2022 14:39-0500 Body temperature 97 [degF] Rigo Parker MD Work Phone: [facility] 10-27-2022 14:39-0500 Body weight 110.77 kg Rigo Parker MD Work Phone: [facility] 10-27-2022 14:39-0500 Heart rate 78 /min Rigo Parker MD Work Phone: [facility] 10-27-2022 14:39-0500 Respiratory rate 18 /min Rigo Parker MD Work Phone: [facility] 10-27-2022 14:39-0500 SaO2% (BldA) [Mass fraction] 93 % Rigo Parker MD Work Phone: [facility] 10-06-2022 10:16-0500 Body height 157.5 cm Rigo Parker MD Work Phone: [facility] 10-06-2022 10:16-0500 Body temperature 97.59 [degF] Rigo Parker MD Work Phone: [facility] 10-06-2022 10:16-0500 Body weight 110.95 kg Rigo Parker MD Work Phone: [facility] 10-06-2022 10:16-0500 Diastolic blood pressure 88 mm[Hg] Rigo Parker MD Work Phone: [facility] 10-06-2022 10:16-0500 Heart rate 70 /min Rigo Parker MD Work Phone: [facility] 10-06-2022 10:16-0500 Respiratory rate 18 /min Rigo Parker MD Work Phone: [facility] 10-06-2022 10:16-0500 SaO2% (BldA) [Mass fraction] 98 % Rigo Parker MD Work Phone: [facility] 10-06-2022 10:16-0500 Systolic blood pressure 136 mm[Hg] Rigo Parker MD Work Phone: [facility] 05-19-2022 11:30-0400 Body height 157.5 cm Rigo Parker MD Work Phone: [facility] 05-19-2022 11:30-0400 Body temperature 97.39 [degF] Rigo Parker MD Work Phone: [facility] 05-19-2022 11:30-0400 Body weight 107.32 kg Rigo Parker MD Work Phone: [facility] 05-19-2022 11:30-0400 Diastolic blood pressure 90 mm[Hg] Rigo Parker MD Work Phone: [facility] 05-19-2022 11:30-0400 Heart rate 66 /min Rigo Parker MD Work Phone: [facility] 05-19-2022 11:30-0400 Respiratory rate 18 /min Rigo Parker MD Work Phone: [facility] 05-19-2022 11:30-0400 SaO2% (BldA) [Mass fraction] 94 % Rigo Parker MD Work Phone: [facility] 05-19-2022 11:30-0400 Systolic blood pressure 152 mm[Hg] Rigo Parker MD Work Phone: [facility] 04-12-2022 15:12-0400 Body temperature 96.91 [degF] Rigo Parker MD Work Phone: [facility] 04-12-2022 15:12-0400 Body weight 107.86 kg Rigo Parker MD Work Phone: [facility] 04-12-2022 15:12-0400 Diastolic blood pressure 98 mm[Hg] Rigo Parker MD Work Phone: [facility] 04-12-2022 15:12-0400 Heart rate 76 /min Rigo Parker MD Work Phone: [facility] 04-12-2022 15:12-0400 Respiratory rate 14 /min Rigo Parker MD Work Phone: [facility] 04-12-2022 15:12-0400 SaO2% (BldA) [Mass fraction] 95 % Rigo Parker MD Work Phone: [facility] 04-12-2022 15:12-0400 Systolic blood pressure 150 mm[Hg] Rigo Parker MD Work Phone: [facility] 03-31-2022 10:37-0400 Body height 157.5 cm Rigo Parker MD Work Phone: [facility] 03-31-2022 10:37-0400 Body temperature 97.5 [degF] Rigo Parker MD Work Phone: [facility] 03-31-2022 10:37-0400 Body weight 109.14 kg Rigo Parker MD Work Phone: [facility] 03-31-2022 10:37-0400 Diastolic blood pressure 96 mm[Hg] Rigo Parker MD Work Phone: [facility] 03-31-2022 10:37-0400 Heart rate 64 /min Rigo Parker MD Work Phone: [facility] 03-31-2022 10:37-0400 Respiratory rate 14 /min Rigo Parker MD Work Phone: [facility] 03-31-2022 10:37-0400 SaO2% (BldA) [Mass fraction] 96 % Rigo Parker MD Work Phone: [facility] 03-31-2022 10:37-0400 Systolic blood pressure 150 mm[Hg] Rigo Parker MD Work Phone: [facility] 01-04-2022 13:30-0400 Body temperature 95.7 [degF] Rigo Parker MD Work Phone: [facility] 01-04-2022 13:30-0400 Body weight 97.98 kg Rigo Parker MD Work Phone: [facility] 01-04-2022 13:30-0400 Diastolic blood pressure 80 mm[Hg] Rigo Parker MD Work Phone: [facility] 01-04-2022 13:30-0400 Heart rate 68 /min Rigo Parker MD Work Phone: [facility] 01-04-2022 13:30-0400 Respiratory rate 18 /min Rigo Parker MD Work Phone: [facility] 01-04-2022 13:30-0400 SaO2% (BldA) [Mass fraction] 96 % Rigo Parker MD Work Phone: [facility] 01-04-2022 13:30-0400 Systolic blood pressure 132 mm[Hg] Rigo Parker MD Work Phone: [facility] Encounters Encounter Date Encounter Type Care Provider Facility Start: 05-27-2023 Patient encounter procedure [facility] Provider [facility] Department Start: 05-12-2023 End: 05-12-2023 ambulatory RIGO PARKER Facility:[facility] Start: 04-14-2023 Telephone encounter Rigo Parker MD Work Phone: [facility] Procedures Date Procedure Procedure Detail Performing Clinician Start: 04-13-2023 Lipid 1996 panel - S alpesh or Plasma [facility] Provider Start: 10-27-2022 Follow-up visit Follow Up RIGO PARKER Start: 04-20-2022 Mammography Rigo guadalupe MD Work Phone: Start: 04-26-2019 Colonoscopy Rigo guadalupe MD Work Phone: Plan of Treatment Date Care Activity Detail Author Start: 04-13-2028 Lipid 1996 panel - Serum or Plasma Lipid Screening [facility] Start: 04-13-2028 LIPID SCREEN LIPID SCREEN [facility] Start: 10-08-2027 LIPID SCREEN LIPID SCREEN [facility] Start: 03-31-2027 LIPID SCREEN LIPID SCREEN [facility] Start: 04-13-2026 DIABETES SCREEN DIABETES SCREEN [facility] Start: 04-13-2026 Diabetes Screening Diabetes Screenin g [facility] Start: 10-08-2025 DIABETES SCREEN DIABETES SCREEN [facility] Start: 03-31-2025 DIABETES SCREEN DIABETES SCREEN [facility] Start: 05-12-2024 Mammography Mammogram Screening [facility] Start: 04-06-2024 ANNUAL PCP TEAM CONTRACTS ANALYST JACQUELINE DISEASE VISIT ANNUAL PCP TEAM CHRONIC DISEASE VISIT [facility] Start: 11-30-2023 ANNUAL PCP TEAM CONTRACTS ANALYST JACQUELINE DISEASE VISIT ANNUAL PCP TEAM CHRONIC DISEASE VISIT [facility] Start: 10-28-2023 ANNUAL PCP TEAM CONTRACTS ANALYST JACQUELINE DISEASE VISIT ANNUAL PCP TEAM CHRONIC DISEASE VISIT [facility] Start: 10-06-2023 ANNUAL PCP TEAM CONTRACTS ANALYST JACQUELINE DISEASE VISIT ANNUAL PCP TEAM CHRONIC DISEASE VISIT [facility] Start: 10-06-2023 BP CONTROLLED (<130/80) BP CONTROLLE D (<130/80) [facility] Start: 05-19-2023 ANNUAL PCP TEAM CONTRACTS ANALYST JACQUELINE DISEASE VISIT ANNUAL PCP TEAM CHRONIC DISEASE VISIT [facility] Start: 04-26-2023 Colonoscopy COLONOSCOPY [facility] Start: 04-26-2023 COLORECTAL CANCER SCREENING COLORECTAL CANCER SCREENING [facility] Start: 04-22-2023 Influenza vaccination C [facility] Start: 04-20-2023 Mammography MAMMOGRAM [facility] Start: 04-12-2023 ANNUAL PCP TEAM CONTRACTS ANALYST JACQUELINE DISEASE VISIT ANNUAL PCP TEAM CHRONIC DISEASE VISIT [facility] Start: 04-06-2023 End: 06-06-2023 25-hydroxyvitamin D3 [Mass/volume] in Serum or Plasma VITAMIN D 25 HYDROXY Lab Routine Vitamin D deficiency Expected: 04/06/2023, Expires: 06/06/2023 [facility] Work Phone: Immunizations Immunization Date Immunization Notes Care Provider [facility] 08-04-2022 influenza, injectabl e, quadrivalent, preservative free Rigo Parker MD Work Phone: [facility] 08-04-2022 influenza virus vacc ine, unspecified formulation [facility] Provider [facility] 06-03-2021 influenza (HD-IIV4) vaccine, age 65+ yr, high dose, quadrivalent, PF (FLUZONE HIGH-DOSE) Rigo Parker MD Work Phone: [facility] 06-25-2020 influenza (aIIV4) vaccine, age 65+ yr, quadrivalent, PF (FLUAD QUAD) Rigo Parker MD Work Phone: [facility] 05-11-2019 influenza, high dose seasonal, preservative-free Rigo Parker MD Work Phone: [facility] 05-11-2019 pneumococcal polysaccharide vaccine, 23 valent Rigo Parker MD Work Phone: [facility] 06-21-2018 influenza, high dose seasonal, preservative-free Rigo Parker MD Work Phone: [facility] 06-21-2018 pneumococcal conjuga te vaccine, 13 valent Rigo Parker MD Work Phone: [facility] 06-07-2017 influenza, injectabl e, quadrivalent, preservative free Rigo Parker MD Work Phone: [facility] 06-07-2017 zoster vaccine, live Rigo Parker MD Work Phone: [facility] Payers Date Payer Category Payer Medicare [id number] 2021 Medicare [id number] 2009 Unknown [id number] Social History Date Type Detail Facility Start: 01-04-2022 Tobacco smoking stat [facility] Smokes tobacco daily [facility] Start: 1950 Sex Assigned At Not on file C [facility] Start: 03-31-2022 Tobacco smoking stat [facility] Ex-smoker [facility] History of tobacco use Current smoker [facility] History of tobacco use Cigarette Smoker C [facility] Start: 03-31-2022 End: 04-06-2023 Cigarettes smoked current (pack per day) - Reported 1.5 [facility] Start: 03-31-2022 Tobacco use and exposure Smoke less tobacco non-user [facility] Start: 03-31-2022 End: 04-06-2023 Alcohol intake Current drinker of alcohol (finding) [facility] Start: 03-31-2022 History SDOH Alcohol Comment occasional [facility] Start: 03-21-2022 End: 05-19-2022 Exposure to SARS-CoV-2 (event) Not sure [facility] Start: 10-06-2022 History SDOH Alcohol Frequency 2 [facility] Start: 10-06-2022 History SDOH Alcohol Std Drinks 1 [facility] Start: 10-06-2022 History SDOH Social Connections Phone 5 [facility] Start: 10-06-2022 History SDOH Social Connections Living 3 [facility] Start: 10-06-2022 History SDOH Physica l Activity MPS 6 [facility] Start: 10-06-2022 End: 04-06-2023 Social connection and isolation panel [facility] Do you belong to any clubs or organizations such as oriental orthodox groups, unions, fraternal or athletic groups, or school groups? No [facility] Are you now , , , , never or living with a partner? [facility] How often to you hav e a drink containing alcohol? Monthly or less [facility] How many standard dr inks containing alcohol do you have on a typical day? 1 or 2 [facility] How often do you hav e 6 or more drinks on 1 occasion? Never [facility] How hard is it for y ou to pay for the very basics like food, housing, medical care, and heating Not hard at all [facility] Do you feel stress - tense, restless, nervous, or anxious, or unable to sleep at night because your mind is troubled all the time - these days [OSQ] Not at all [facility] (I/We) worried wheth er (my/our) food would run out before (I/we) got money to buy more. Never true [facility] NEGATED: Highlighted rowStart: NINF History of tobacco use Passive smoker [facility] Clinical Notes 03-31-2022 to 05-12-2023 Telephone Encounter - Stephania Gao LPN - 04/14/2023 12:35 PM EDTTelephone Encounter - Olga Upton LPN - 04/08/2023 10:07 AM Rigo Brand MD - 04/06/2023 10:19 AM EDT Note Date & Type Note Facility 05-12-2023 Note HNO ID: [id number] Author: Chaim Muñoz Mammo Tech Service: ? Author Type: Technologist Type: Progress Notes Filed: 05/12/2023 10:23 AM Note Text: Radiology Service Progress Note PATIENT NAME: Sade Ovalle DATE OF SERVICE: May 12, 2023 TIME: 10:23 AM PATIENT IDENTITY VERIFICATION COMPLETED USING TWO (2) IDENTIFIERS: Name and Date of confirmed by patient verbally. FALL SCREENING: Has the patient had 2 falls in the last year or 1 fall with injury or currently using an Ambulatory Assistive Device (Walker, Cane, Wheelchair, Crutches, etc.)? No PATIENT GENDER DATA: Female. status: : No status: NO. PATIENT RELEVANT IMPLANT DATA REVIEWED: Not Applicable RADIOLOGY DEPARTMENT: Mammography PERIPHERAL IV DATA: Not applicable SIGNED BY: Michael Sparks May 12, 2023 10:23 AM [facility] 04-14-2023 Miscellaneous Notes Letter has been sent to patient to inform them that referral was sent to: Dr. Sue [address] [phone] Fax confirmation received Stephania Gao LPN April 14, 2023 12:35 PM documented in this encounter [facility] 04-08-2023 Miscellaneous Notes Spoke with patient who requested the compression stocking Rx be sent to [facility] in [place] on [address]. Rx successfully faxed to [facility] at fax # [phone], confirmation received, and all faxed information to be scanned into patient's chart. Olga Upton LPN April 08, 2023 10:10 AM documented in this encounter [facility] 04-06-2023 Note HNO ID: [id number] Author: Rigo Parker MD Service: ? Author Type: Physician Type: Progress Notes Filed: 04/07/2023 9:28 AM Note Text: This note was created using Rostelecomriter. Subjective Sade Ovalle is a 72 year old female presenting today for 6-month follow-up of chronic medical conditions. Sade has a history of hypertension and continues on amlodipine and Zestoretic. She is also compliant with antilipid medications. Her blood pressures have been controlled at home 120s/80s, however Sade does endorse bilateral lower extremity edema and aching for the last 3 to 4 months. She denies other cardiac symptoms including shortness of breath, chest pain, headache, and blurred vision. She does report that the edema resolves overnight. Sade has not tried anything at home to remedy edema and does not wear compression stockings. Sade does endorse consumption of processed foods including boxed/canned foods and soups although she does not add salt to her food. Sade was educated about high sodium content in processed foods and that it is best to avoid as much as possible. She does endorse significant weight gain over the last several years. She has gained 3 pounds since her most recent visit in November. Sade does report a sedentary lifestyle without presence of regular aerobic exercise although she does participate in a weekly [employer] league. Sade states that she is always tired. This has also been persistent over the last 3 to 4 months. She sleeps well at night despite occasionally waking to void. She does endorse daytime napping on a regular basis. Review of Systems Constitutional: Positive for fatigue. HENT: Negative. Eyes: Negative. Respiratory: Negative. Cardiovascular: Positive for leg swelling. Negative for chest pain and palpitations. Bilateral leg swelling and aching. Worse in the evening. Does resolve overnight. Gastrointestinal: Negative. Endocrine: Negative. Genitourinary: Negative. Musculoskeletal: Negative. Skin: Negative. Allergic/Immunologic: Negative. Neurological: Negative. Hematological: Negative. Psychiatric/Behavioral: Negative. Objective BP 132/82 (BP Site: Right Arm, BP Position: Sitting, BP Cuff Size: Regular Adult) Pulse 70 Temp 36 ?C (96.8 ?F) (Temporal) Resp 18 Ht 157.5 cm (5' 2 ) Wt 111.6 kg (246 lb) SpO2 95% BMI 44.99 kg/m? Physical Exam Constitutional: General: She is awake. She is not in acute distress. Appearance: Normal appearance. She is well-developed. She is obese. HENT: Head: Normocephalic and atraumatic. Right Ear: External ear normal. Left Ear: External ear normal. Nose: Nose normal. Mouth/Throat: Mouth: Mucous membranes are moist. Pharynx: Oropharynx is clear. Eyes: Extraocular Movements: Extraocular movements intact. Pupils: Pupils are equal, round, and reactive to light. Cardiovascular: Rate and Rhythm: Normal rate and regular rhythm. Pulses: Normal pulses. Heart sounds: Normal heart sounds. No murmur heard. Pulmonary: Effort: Pulmonary effort is normal. No respiratory distress. Breath sounds: Normal breath sounds. Abdominal: General: Bowel sounds are normal. Palpations: Abdomen is soft. Musculoskeletal: General: No tenderness, deformity or signs of injury. Normal range of motion. Cervical back: Normal range of motion and neck supple. Right lower leg: No tenderness. 1+ Pitting Edema present. Left lower leg: No tenderness. 1+ Pitting Edema present. Skin: General: Skin is warm and dry. Capillary Refill: Capillary refill takes less than 2 seconds. Findings: No erythema. Neurological: General: No focal deficit present. Mental Status: She is alert and oriented to person, place, and time. Motor: No weakness. Gait: Gait normal. Psychiatric: Mood and Affect: Mood normal. Behavior: Behavior normal. Behavior is cooperative. Assessment and Plan Encounter Diagnosis ICD-10-CM 1. Hypertension, essential I10 lisinopril-hydroCHLOROthiazide (ZESTORETIC) 20-25 mg per tablet COMP METABOLIC PANEL 2. Edema of both lower extremities R60.0 3. Pure hypercholesterolemia E78.00 LIPID PANEL BASIC 4. Fatigue, unspecified type R53.83 5. Vitamin D deficiency E55.9 VITAMIN D 25 HYDROXY 6. Screening for colon cancer Z12.11 CONSULT TO GASTROENTEROLOGY CANCELED: IRA 7. Screening mammogram for breast cancer Z12.31 [facility] SCREENING (I10) Hypertension, essential (primary encounter diagnosis) Comment: Stable. Blood pressure 132/82 in clinic today. Plan: lisinopril-hydroCHLOROthiazide (ZESTORETIC) 20-25 mg per tablet, COMP METABOLIC PANEL Labs as above. Continue present medications. Continue to track blood pressure at home regularly and record. Notify office if blood pressure is consistently greater than 140/90. Initiate diet modifications including restriction of high-sodium, processed foods. (R60.0) Edema of both lower extremities Comment: Ongoing. (more content not included)... [facility] 04-06-2023 Note HNO ID: [id number] Author: Stephania Gao LPN Service: ? Author Type: LICENSED NURSE Type: Progress Notes Filed: 04/07/2023 9:28 AM Note Text: Patient is in office today for 6 month exam. Patient states she has been experiencing bilateral food edema. Also, states that she is always tired. Stephania Gao LPN April 06, 2023 10:04 AM [facility] 04-06-2023 History of Present illness Narrative This note was created using NoteWriter. Subjective Sade Ovalle is a 72 year old female presenting today for 6-month follow-up of chronic medical conditions. Sade has a history of hypertension and continues on amlodipine and Zestoretic. She is also compliant with antilipid medications. Her blood pressures have been controlled at home 120s/80s, however Sade does endorse bilateral lower extremity edema and aching for the last 3 to 4 months. She denies other cardiac symptoms including shortness of breath, chest pain, headache, and blurred vision. She does report that the edema resolves overnight. Sade has not tried anything at home to remedy edema and does not wear compression stockings. Sade does endorse consumption of processed foods including boxed/canned foods and soups although she does not add salt to her food. Sade was educated about high sodium content in processed foods and that it is best to avoid as much as possible. She does endorse significant weight gain over the last several years. She has gained 3 pounds since her most recent visit in November. Sade does report a sedentary lifestyle without presence of regular aerobic exercise although she does participate in a weekly [employer] league. Sade states that she is always tired. This has also been persistent over the last 3 to 4 months. She sleeps well at night despite occasionally waking to void. She does endorse daytime napping on a regular basis. Review of Systems Constitutional: Positive for fatigue. HENT: Negative. Eyes: Negative. Respiratory: Negative. Cardiovascular: Positive for leg swelling. Negative for chest pain and palpitations. Bilateral leg swelling and aching. Worse in the evening. Does resolve overnight. Gastrointestinal: Negative. Endocrine: Negative. Genitourinary: Negative. Musculoskeletal: Negative. Skin: Negative. Allergic/Immunologic: Negative. Neurological: Negative. Hematological: Negative. Psychiatric/Behavioral: Negative. Objective BP 132/82 (BP Site: Right Arm, BP Position: Sitting, BP Cuff Size: Regular Adult) Pulse 70 Temp 36 C (96.8 F) (Temporal) Resp 18 Ht 157.5 cm (5' 2 ) Wt 111.6 kg (246 lb) SpO2 95% BMI 44.99 kg/m Physical Exam Constitutional: General: She is awake. She is not in acute distress. Appearance: Normal appearance. She is well-developed. She is obese. HENT: Head: Normocephalic and atraumatic. Right Ear: External ear normal. Left Ear: External ear normal. Nose: Nose normal. Mouth/Throat: Mouth: Mucous membranes are moist. Pharynx: Oropharynx is clear. Eyes: Extraocular Movements: Extraocular movements intact. Pupils: Pupils are equal, round, and reactive to light. Cardiovascular: Rate and Rhythm: Normal rate and regular rhythm. Pulses: Normal pulses. Heart sounds: Normal heart sounds. No murmur heard. Pulmonary: Effort: Pulmonary effort is normal. No respiratory distress. Breath sounds: Normal breath sounds. Abdominal: General: Bowel sounds are normal. Palpations: Abdomen is soft. Musculoskeletal: General: No tenderness, deformity or signs of injury. Normal range of motion. Cervical back: Normal range of motion and neck supple. Right lower leg: No tenderness. 1+ Pitting Edema present. Left lower leg: No tenderness. 1+ Pitting Edema present. Skin: General: Skin is warm and dry. Capillary Refill: Capillary refill takes less than 2 seconds. Findings: No erythema. Neurological: General: No focal deficit present. Mental Status: She is alert and oriented to person, place, and time. Motor: No weakness. Gait: Gait normal. Psychiatric: Mood and Affect: Mood normal. Behavior: Behavior normal. Behavior is cooperative. Assessment and Plan Encounter Diagnosis ICD-10-CM 1. Hypertension, essential I10 lisinopril-hydroCHLOROthiazide (ZESTORETIC) 20-25 mg per tablet COMP METABOLIC PANEL 2. Edema of both lower extremities R60.0 3. Pure hypercholesterolemia E78.00 LIPID PANEL BASIC 4. Fatigue, unspecified type R53.83 5. Vitamin D deficiency E55.9 VITAMIN D 25 HYDROXY 6. Screening for colon cancer Z12.11 CONSULT TO GASTROENTEROLOGY CANCELED: IRA 7. Screening mammogram for breast cancer Z12.31 [facility] SCREENING (I10) Hypertension, essential (primary encounter diagnosis) Comment: Stable. Blood pressure 132/82 in clinic today. Plan: lisinopril-hydroCHLOROthiazide (ZESTORETIC) 20-25 mg per tablet, COMP METABOLIC PANEL Labs as above. Continue present medications. Continue to track blood pressure at home regularly and record. Notify office if blood pressure is consistently greater than 140/90. Initiate diet modifications including restriction of high-sodium, processed foods. (R60.0) Edema of both lower extremities Comment: Ongoing. Discussed with patient that edema may be related to her blood pressure medication, high sodium diet, or varicose veins. Plan: Initiate therapy with compression stockings daily. Apply stockings in the morning and remove at bedtime. Consider referral to vascular surgery if no improvement with consistent compression therapy. (E78.00) Pure hypercholesterolemia Comment: Stability to be determined. Plan: LIPID PANEL BASIC Labs as above. Continue present medications. (R53.83) Fatigue, unspecified type Comment: Ongoing. Plan: Patient encouraged to initiate sleep hygiene, attempt to eliminate daytime napping, and improve diet and exercise routine. (E55.9) Vitamin D deficiency Comment: Ongoing fatigue. Plan: VITAMIN D 25 HYDROXY Labs as above to evaluate for deficiency. (Z12.11) Screening for colon cancer Comment: Patient with history of benign polyps found during previous colonoscopy. 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 Plan: CONSULT TO GASTROENTEROLOGY Patient to schedule screening colonoscopy. Dotty Hawley APRN.TYRA Patient was seen and evaluated in conjunction with Dotty Hawley CNP. I agree with the above assessment and plan. Rigo Parker MD Patient is in office today for 6 month exam. Patient states she has been experiencing bilateral food edema. Also, states that she is always tired. Stephania Gao LPN April 06, 2023 10:04 AM documented in this encounter [facility] 12-13-2022 Miscellaneous Notes Pharmacy [facility] message requesting the following refill. Requested Prescriptions Pending Prescriptions Disp Refills latanoprost (XALATAN) 0.005 % ophthalmic solution [Pharmacy Med Name: Latanoprost 0.005 % Ophthalmic Solution] 7.5 mL 3 Sig: INSTILL 1 DROP INTO EACH EYE ONCE DAILY AT NIGHT Patient last appointment: 11/29/2022 Next appointment 04/06/2023 Patient Phone numbers: [phone] (home) [phone] (work) Request is for script(s) to be escript to [facility] mail order pharmacy. Dolly Douglas LPN documented in this encounter [facility] 11-29-2022 Note HNO ID: [id number] Author: Rigo Parker MD Service: ? Author Type: Physician Type: Progress Notes Filed: 11/29/2022 11:01 AM Note Text: This note was created using Rostelecomriter. Subjective Sade Ovalle is a 72 year old female.Patient is in office for follow up for hypertension. Patient was seen in office on 10-27-2022, and was advised to reduce salt, stress, weight, and increase exercise. Norvasc was increased to 10 mg daily. Patient also advised to obtain a new blood pressure cuff and record readings regularly. Patient brought BP log today. Patient states increase in the Norvasc has been effective. Denies any issues with increase. Review of Systems Constitutional: Negative. HENT: Negative. Eyes: Negative. Respiratory: Negative. Cardiovascular: Negative. Gastrointestinal: Negative. Endocrine: Negative. Genitourinary: Negative. Musculoskeletal: Negative. Skin: Negative. Allergic/Immunologic: Negative. Neurological: Negative. Hematological: Negative. Psychiatric/Behavioral: Negative. Objective BP 138/84 (BP Site: Left Arm, BP Position: Sitting, BP Cuff Size: Large Adult) Pulse 68 Temp 36.2 ?C (97.1 ?F) (Temporal) Resp 18 Ht 157.5 cm (5' 2 ) Wt 110.5 kg (243 lb 8 oz) SpO2 96% BMI 44.54 kg/m? Physical Exam Vitals reviewed. Constitutional: Appearance: Normal appearance. HENT: Head: Normocephalic and atraumatic. Nose: Nose normal. Eyes: Extraocular Movements: Extraocular movements intact. Pupils: Pupils are equal, round, and reactive to light. Cardiovascular: Rate and Rhythm: Normal rate and regular rhythm. Pulmonary: Effort: Pulmonary effort is normal. Breath sounds: Normal breath sounds. Abdominal: General: Bowel sounds are normal. Palpations: Abdomen is soft. Musculoskeletal: General: Normal range of motion. Cervical back: Normal range of motion and neck supple. Skin: General: Skin is warm and dry. Capillary Refill: Capillary refill takes less than 2 seconds. Neurological: General: No focal deficit present. Mental Status: She is alert and oriented to person, place, and time. Mental status is at baseline. Psychiatric: Mood and Affect: Mood normal. Behavior: Behavior normal. Assessment and Plan Sade was seen today for follow up. Diagnoses and all orders for this visit: Hypertension, essential Pure hypercholesterolemia Continue present medications. Follow-up in 6 months [facility] 11-29-2022 Note HNO ID: [id number] Author: Ogla Upton LPN Service: ? Author Type: LICENSED NURSE Type: Progress Notes Filed: 11/29/2022 11:01 AM Note Text: Patient is in office for follow up for hypertension. Patient was seen in office on 10-27-2022, and was advised to reduce salt, stress, weight, and increase exercise. Norvasc was increased to 10 mg daily. Patient also advised to obtain a new blood pressure cuff and record readings regularly. Patient brought BP log today. Patient states increase in the Norvasc has been effective. Denies any issues with increase. No refills needed today. Olga Upton LPN November 29, 2022 9:41 AM [facility] 11-29-2022 History of Present illness Narrative This note was created using Leosphere. Subjective Sade Ovalle is a 72 year old female.Patient is in office for follow up for hypertension. Patient was seen in office on 10-27-2022, and was advised to reduce salt, stress, weight, and increase exercise. Norvasc was increased to 10 mg daily. Patient also advised to obtain a new blood pressure cuff and record readings regularly. Patient brought BP log today. Patient states increase in the Norvasc has been effective. Denies any issues with increase. Review of Systems Constitutional: Negative. HENT: Negative. Eyes: Negative. Respiratory: Negative. Cardiovascular: Negative. Gastrointestinal: Negative. Endocrine: Negative. Genitourinary: Negative. Musculoskeletal: Negative. Skin: Negative. Allergic/Immunologic: Negative. Neurological: Negative. Hematological: Negative. Psychiatric/Behavioral: Negative. Objective BP 138/84 (BP Site: Left Arm, BP Position: Sitting, BP Cuff Size: Large Adult) Pulse 68 Temp 36.2 C (97.1 F) (Temporal) Resp 18 Ht 157.5 cm (5' 2 ) Wt 110.5 kg (243 lb 8 oz) SpO2 96% BMI 44.54 kg/m Physical Exam Vitals reviewed. Constitutional: Appearance: Normal appearance. HENT: Head: Normocephalic and atraumatic. Nose: Nose normal. Eyes: Extraocular Movements: Extraocular movements intact. Pupils: Pupils are equal, round, and reactive to light. Cardiovascular: Rate and Rhythm: Normal rate and regular rhythm. Pulmonary: Effort: Pulmonary effort is normal. Breath sounds: Normal breath sounds. Abdominal: General: Bowel sounds are normal. Palpations: Abdomen is soft. Musculoskeletal: General: Normal range of motion. Cervical back: Normal range of motion and neck supple. Skin: General: Skin is warm and dry. Capillary Refill: Capillary refill takes less than 2 seconds. Neurological: General: No focal deficit present. Mental Status: She is alert and oriented to person, place, and time. Mental status is at baseline. Psychiatric: Mood and Affect: Mood normal. Behavior: Behavior normal. Assessment and Plan Sade was seen today for follow up. Diagnoses and all orders for this visit: Hypertension, essential Pure hypercholesterolemia Continue present medications. Follow-up in 6 months Patient is in office for follow up for hypertension. Patient was seen in office on 10-27-2022, and was advised to reduce salt, stress, weight, and increase exercise. Norvasc was increased to 10 mg daily. Patient also advised to obtain a new blood pressure cuff and record readings regularly. Patient brought BP log today. Patient states increase in the Norvasc has been effective. Denies any issues with increase. No refills needed today. Olga Upton LPN November 29, 2022 9:41 AM documented in this encounter [facility] 10-27-2022 Note HNO ID: [id number] Author: Rigo Parker MD Service: ? Author Type: Physician Type: Progress Notes Filed: 10/27/2022 3:36 PM Note Text: This note was created using eFanster. Subjective Sade Ovalle is a 72 year old female. The presents today for elevated blood pressure readings. Her blood pressure readings at home are in the 180 range systolically. She did bring her blood pressure cuff with her today. It is reading much higher than our cuff in the office. However readings are still elevated. She is 152/94 in the office today. She is currently on Prinzide and Norvasc. Review of Systems Constitutional: Negative. HENT: Negative. Eyes: Negative. Respiratory: Negative. Cardiovascular: Negative. Gastrointestinal: Negative. Endocrine: Negative. Genitourinary: Negative. Musculoskeletal: Negative. Skin: Negative. Allergic/Immunologic: Negative. Neurological: Negative. Hematological: Negative. Psychiatric/Behavioral: Negative. Objective BP 152/94 (BP Site: Left Arm, BP Position: Sitting, BP Cuff Size: Large Adult) Pulse 78 Temp 36.1 ?C (97 ?F) (Temporal) Resp 18 Ht 157.5 cm (5' 2 ) Wt 110.8 kg (244 lb 3.2 oz) SpO2 93% BMI 44.66 kg/m? Physical Exam Vitals reviewed. Constitutional: Appearance: Normal appearance. HENT: Head: Normocephalic and atraumatic. Nose: Nose normal. Eyes: Extraocular Movements: Extraocular movements intact. Pupils: Pupils are equal, round, and reactive to light. Cardiovascular: Rate and Rhythm: Normal rate and regular rhythm. Pulmonary: Effort: Pulmonary effort is normal. Breath sounds: Normal breath sounds. Abdominal: General: Bowel sounds are normal. Palpations: Abdomen is soft. Musculoskeletal: General: Normal range of motion. Cervical back: Normal range of motion and neck supple. Skin: General: Skin is warm and dry. Capillary Refill: Capillary refill takes less than 2 seconds. Neurological: General: No focal deficit present. Mental Status: She is alert and oriented to person, place, and time. Mental status is at baseline. Psychiatric: Mood and Affect: Mood normal. Behavior: Behavior normal. Assessment and Plan Sade was seen today for follow up. Diagnoses and all orders for this visit: Hypertension, benign Other orders - amLODIPine (NORVASC) 10 mg tablet; Take 1 tablet by mouth once daily. Continue Prinzide. Increase Norvasc to 10 mg daily. Obtain new blood pressure cuff. Record readings regularly. Follow-up in 1 month. Reduce salt. Reduce stress. Reduce weight. Increase exercise. [facility] 10-27-2022 Note HNO ID: [id number] Author: Stephania Gao LPN Service: ? Author Type: LICENSED NURSE Type: Progress Notes Filed: 10/27/2022 3:36 PM Note Text: Patient is in office today for a follow up for hypertension. Patient stated that her blood pressure has been running very high. Patient stated that her blood pressure was 200/103 this morning before taking medication. Patient denies cardiac symptoms, and states that she feels fine. No refills needed at this time Stephania Gao LPN October 27, 2022 2:47 PM [facility] 10-27-2022 History of Present illness Narrative This note was created using Leosphere. Subjective Sade Ovalle is a 72 year old female. The presents today for elevated blood pressure readings. Her blood pressure readings at home are in the 180 range systolically. She did bring her blood pressure cuff with her today. It is reading much higher than our cuff in the office. However readings are still elevated. She is 152/94 in the office today. She is currently on Prinzide and Norvasc. Review of Systems Constitutional: Negative. HENT: Negative. Eyes: Negative. Respiratory: Negative. Cardiovascular: Negative. Gastrointestinal: Negative. Endocrine: Negative. Genitourinary: Negative. Musculoskeletal: Negative. Skin: Negative. Allergic/Immunologic: Negative. Neurological: Negative. Hematological: Negative. Psychiatric/Behavioral: Negative. Objective BP 152/94 (BP Site: Left Arm, BP Position: Sitting, BP Cuff Size: Large Adult) Pulse 78 Temp 36.1 C (97 F) (Temporal) Resp 18 Ht 157.5 cm (5' 2 ) Wt 110.8 kg (244 lb 3.2 oz) SpO2 93% BMI 44.66 kg/m Physical Exam Vitals reviewed. Constitutional: Appearance: Normal appearance. HENT: Head: Normocephalic and atraumatic. Nose: Nose normal. Eyes: Extraocular Movements: Extraocular movements intact. Pupils: Pupils are equal, round, and reactive to light. Cardiovascular: Rate and Rhythm: Normal rate and regular rhythm. Pulmonary: Effort: Pulmonary effort is normal. Breath sounds: Normal breath sounds. Abdominal: General: Bowel sounds are normal. Palpations: Abdomen is soft. Musculoskeletal: General: Normal range of motion. Cervical back: Normal range of motion and neck supple. Skin: General: Skin is warm and dry. Capillary Refill: Capillary refill takes less than 2 seconds. Neurological: General: No focal deficit present. Mental Status: She is alert and oriented to person, place, and time. Mental status is at baseline. Psychiatric: Mood and Affect: Mood normal. Behavior: Behavior normal. Assessment and Plan Sade was seen today for follow up. Diagnoses and all orders for this visit: Hypertension, benign Other orders - amLODIPine (NORVASC) 10 mg tablet; Take 1 tablet by mouth once daily. Continue Prinzide. Increase Norvasc to 10 mg daily. Obtain new blood pressure cuff. Record readings regularly. Follow-up in 1 month. Reduce salt. Reduce stress. Reduce weight. Increase exercise. Patient is in office today for a follow up for hypertension. Patient stated that her blood pressure has been running very high. Patient stated that her blood pressure was 200/103 this morning before taking medication. Patient denies cardiac symptoms, and states that she feels fine. No refills needed at this time Stephania Gao LPN October 27, 2022 2:47 PM documented in this encounter [facility] 10-15-2022 Miscellaneous Notes Population Health informed this nurse that the following orders need generated for the care gaps to close for the year. Hep C Screening and Bone Density Stephania Gao LPN October 15, 2022 4:16 PM documented in this encounter [facility] 10-06-2022 Note HNO ID: [id number] Author: Rigo Parker MD Service: ? Author Type: Physician Type: Progress Notes Filed: 10/06/2022 1:15 PM Note Text: This note was created using Rostelecomriter. Subjective Sade Ovalle is a 72 year old female. Sade presents today for her Medicare wellness exam. Review of Systems Constitutional: Negative. HENT: Negative. Eyes: Negative. Respiratory: Negative. Cardiovascular: Negative. Gastrointestinal: Negative. Endocrine: Negative. Genitourinary: Negative. Musculoskeletal: Negative. Skin: Negative. Allergic/Immunologic: Negative. Neurological: Negative. Hematological: Negative. Psychiatric/Behavioral: Negative. Objective BP 136/88 (BP Site: Left Arm, BP Position: Sitting, BP Cuff Size: Large Adult) Pulse 70 Temp 36.4 ?C (97.6 ?F) (Temporal) Resp 18 Ht 157.5 cm (5' 2 ) Wt 110.9 kg (244 lb 9.6 oz) SpO2 98% BMI 44.74 kg/m? Physical Exam Vitals reviewed. Constitutional: Appearance: Normal appearance. HENT: Head: Normocephalic and atraumatic. Nose: Nose normal. Eyes: Extraocular Movements: Extraocular movements intact. Pupils: Pupils are equal, round, and reactive to light. Cardiovascular: Rate and Rhythm: Normal rate and regular rhythm. Pulmonary: Effort: Pulmonary effort is normal. Breath sounds: Normal breath sounds. Abdominal: General: Bowel sounds are normal. Palpations: Abdomen is soft. Musculoskeletal: General: Normal range of motion. Cervical back: Normal range of motion and neck supple. Skin: General: Skin is warm and dry. Capillary Refill: Capillary refill takes less than 2 seconds. Neurological: General: No focal deficit present. Mental Status: She is alert and oriented to person, place, and time. Mental status is at baseline. Psychiatric: Mood and Affect: Mood normal. Behavior: Behavior normal. Assessment and Plan Sade was seen today for medicare wellness exam. Diagnoses and all orders for this visit: Counseling regarding advanced directives - ADVANCE CARE PLAN DISCUSSION Wellness examination Hypertension, essential - COMP METABOLIC PANEL; Future Pure hypercholesterolemia - COMP METABOLIC PANEL; Future - LIPID PANEL BASIC; Future Screening for deficiency anemia - CBC + DIFF; Future Other orders - latanoprost (XALATAN) 0.005 % ophthalmic solution; INSTILL 1 DROP INTO EACH EYE ONCE DAILY AT NIGHT - betamethasone dipropionate (DIPROSONE) 0.05 % cream; Apply to affected area twice daily as needed. - calcium carbonate 600 mg-cholecalciferol 400 units 600 mg-10 mcg (400 unit) tab; Take 1 tablet by mouth twice daily. - fenofibrate nanocrystallized (TRICOR) 145 mg tablet; Take 1 tablet by mouth once daily. - simvastatin (ZOCOR) 20 mg tablet; Take 1 tablet by mouth once daily. - Magnesium Oxide 500 mg tab; Take 1 tablet by mouth twice daily. - DEPRESSION SCREENING/ASSESSMENT [facility] 10-06-2022 Note HNO ID: [id number] Author: Stephania Gao LPN Service: ? Author Type: LICENSED NURSE Type: Progress Notes Filed: 10/06/2022 1:15 PM Note Text: Patient is aware of needing vaccines listed in health maintenance, declined at this time. Medicare Yearly Visit Current Outpatient Medications Medication Sig lisinopril-hydroCHLOROthiazide (PRINZIDE, ZESTORETIC) 20-25 mg per tablet Take 1 tablet by mouth once daily. amLODIPine (NORVASC) 5 mg tablet Take 1 tablet by mouth once daily. latanoprost (XALATAN) 0.005 % ophthalmic solution INSTILL 1 DROP INTO EACH EYE ONCE DAILY AT NIGHT betamethasone dipropionate (DIPROSONE) 0.05 % cream Apply 1 application to affected area twice daily as needed. calcium carbonate 600 mg-cholecalciferol 400 units 600 mg-10 mcg (400 unit) tab Take 1 tablet by mouth twice daily. fenofibrate nanocrystallized (TRICOR) 145 mg tablet Take 1 tablet by mouth once daily. simvastatin (ZOCOR) 20 mg tablet Take 1 tablet by mouth once daily. Magnesium Oxide 500 mg tab Take by mouth twice daily. No current facility-administered medications for this visit. Medications reviewed: Yes Sade gets sporadic irregular exercise. She watches her diet for sodium, low fat and low cholesterol most of the time. End of Live Planning discussed including patients advanced directive wishes: Yes I am willing to follow Sade advanced directives. Depression screen She in the past two weeks denies having felt down, depressed, hopeless, or with little interest or pleasure in doing things. Functional Ability/Safety Screen 1. Was the patient's timed Up and Go test unsteady or longer than 30 seconds? 2. Does the patient need help with the phone, transportation, shopping,preparing meals, housework, laundry, medications or managing money? No 3. Does your home have rungs in the hallway, lack of grab bars in the bathroom, lack of handrails on the stairs or have poor lighting? No BP 136/88 Pulse 70 Temp (Src) 97.6 (Temporal) Resp 18 Ht 5' 2 (1.58m) Wt 244 lb 9.6 oz (111.0kg) SpO2 98% BMI 44.73 kg/(m2). Rigo Parker MD [facility] 10-06-2022 History of Present illness Narrative This note was created using NoteWriter. Subjective Sade Ovalle is a 72 year old female. Sade presents today for her Medicare wellness exam. Review of Systems Constitutional: Negative. HENT: Negative. Eyes: Negative. Respiratory: Negative. Cardiovascular: Negative. Gastrointestinal: Negative. Endocrine: Negative. Genitourinary: Negative. Musculoskeletal: Negative. Skin: Negative. Allergic/Immunologic: Negative. Neurological: Negative. Hematological: Negative. Psychiatric/Behavioral: Negative. Objective BP 136/88 (BP Site: Left Arm, BP Position: Sitting, BP Cuff Size: Large Adult) Pulse 70 Temp 36.4 C (97.6 F) (Temporal) Resp 18 Ht 157.5 cm (5' 2 ) Wt 110.9 kg (244 lb 9.6 oz) SpO2 98% BMI 44.74 kg/m Physical Exam Vitals reviewed. Constitutional: Appearance: Normal appearance. HENT: Head: Normocephalic and atraumatic. Nose: Nose normal. Eyes: Extraocular Movements: Extraocular movements intact. Pupils: Pupils are equal, round, and reactive to light. Cardiovascular: Rate and Rhythm: Normal rate and regular rhythm. Pulmonary: Effort: Pulmonary effort is normal. Breath sounds: Normal breath sounds. Abdominal: General: Bowel sounds are normal. Palpations: Abdomen is soft. Musculoskeletal: General: Normal range of motion. Cervical back: Normal range of motion and neck supple. Skin: General: Skin is warm and dry. Capillary Refill: Capillary refill takes less than 2 seconds. Neurological: General: No focal deficit present. Mental Status: She is alert and oriented to person, place, and time. Mental status is at baseline. Psychiatric: Mood and Affect: Mood normal. Behavior: Behavior normal. Assessment and Plan Sade was seen today for medicare wellness exam. Diagnoses and all orders for this visit: Counseling regarding advanced directives - ADVANCE CARE PLAN DISCUSSION Wellness examination Hypertension, essential - COMP METABOLIC PANEL; Future Pure hypercholesterolemia - COMP METABOLIC PANEL; Future - LIPID PANEL BASIC; Future Screening for deficiency anemia - CBC + DIFF; Future Other orders - latanoprost (XALATAN) 0.005 % ophthalmic solution; INSTILL 1 DROP INTO EACH EYE ONCE DAILY AT NIGHT - betamethasone dipropionate (DIPROSONE) 0.05 % cream; Apply to affected area twice daily as needed. - calcium carbonate 600 mg-cholecalciferol 400 units 600 mg-10 mcg (400 unit) tab; Take 1 tablet by mouth twice daily. - fenofibrate nanocrystallized (TRICOR) 145 mg tablet; Take 1 tablet by mouth once daily. - simvastatin (ZOCOR) 20 mg tablet; Take 1 tablet by mouth once daily. - Magnesium Oxide 500 mg tab; Take 1 tablet by mouth twice daily. - DEPRESSION SCREENING/ASSESSMENT Patient is aware of needing vaccines listed in health maintenance, declined at this time. Medicare Yearly Visit Current Outpatient Medications Medication Sig lisinopril-hydroCHLOROthiazide (PRINZIDE, ZESTORETIC) 20-25 mg per tablet Take 1 tablet by mouth once daily. amLODIPine (NORVASC) 5 mg tablet Take 1 tablet by mouth once daily. latanoprost (XALATAN) 0.005 % ophthalmic solution INSTILL 1 DROP INTO EACH EYE ONCE DAILY AT NIGHT betamethasone dipropionate (DIPROSONE) 0.05 % cream Apply 1 application to affected area twice daily as needed. calcium carbonate 600 mg-cholecalciferol 400 units 600 mg-10 mcg (400 unit) tab Take 1 tablet by mouth twice daily. fenofibrate nanocrystallized (TRICOR) 145 mg tablet Take 1 tablet by mouth once daily. simvastatin (ZOCOR) 20 mg tablet Take 1 tablet by mouth once daily. Magnesium Oxide 500 mg tab Take by mouth twice daily. No current facility-administered medications for this visit. Medications reviewed: Yes Sade gets sporadic irregular exercise. She watches her diet for sodium, low fat and low cholesterol most of the time. End of Live Planning discussed including patients advanced directive wishes: Yes I am willing to follow Sade advanced directives. Depression screen She in the past two weeks denies having felt down, depressed, hopeless, or with little interest or pleasure in doing things. Functional Ability/Safety Screen 1. Was the patient's timed Up and Go test unsteady or longer than 30 seconds? 2. Does the patient need help with the phone, transportation, shopping,preparing meals, housework, laundry, medications or managing money? No 3. Does your home have rungs in the hallway, lack of grab bars in the bathroom, lack of handrails on the stairs or have poor lighting? No BP 136/88 Pulse 70 Temp (Src) 97.6 (Temporal) Resp 18 Ht 5' 2 (1.58m) Wt 244 lb 9.6 oz (111.0kg) SpO2 98% BMI 44.73 kg/(m^2). Rigo Parker MD documented in this encounter [facility] 05-23-2022 History of Present illness Narrative This note was created using Leosphere. Subjective Sade Ovalle is a 71 year old female. Review of Systems Constitutional: Negative. HENT: Negative. Eyes: Negative. Respiratory: Negative. Cardiovascular: Negative. Gastrointestinal: Negative. Endocrine: Negative. Genitourinary: Negative. Musculoskeletal: Negative. Skin: Negative. Allergic/Immunologic: Negative. Neurological: Negative. Hematological: Negative. Psychiatric/Behavioral: Negative. Objective BP 152/90 (BP Site: Left Arm, BP Position: Sitting, BP Cuff Size: Large Adult) Pulse 66 Temp 36.3 C (97.4 F) (Temporal) Resp 18 Ht 157.5 cm (5' 2 ) Wt 107.3 kg (236 lb 9.6 oz) SpO2 94% BMI 43.27 kg/m Physical Exam Vitals reviewed. Constitutional: Appearance: Normal appearance. HENT: Head: Normocephalic and atraumatic. Nose: Nose normal. Eyes: Extraocular Movements: Extraocular movements intact. Pupils: Pupils are equal, round, and reactive to light. Cardiovascular: Rate and Rhythm: Normal rate and regular rhythm. Pulmonary: Effort: Pulmonary effort is normal. Breath sounds: Normal breath sounds. Abdominal: General: Bowel sounds are normal. Palpations: Abdomen is soft. Musculoskeletal: General: Normal range of motion. Cervical back: Normal range of motion and neck supple. Skin: General: Skin is warm and dry. Capillary Refill: Capillary refill takes less than 2 seconds. Neurological: General: No focal deficit present. Mental Status: She is alert and oriented to person, place, and time. Mental status is at baseline. Psychiatric: Mood and Affect: Mood normal. Behavior: Behavior normal. Assessment and Plan Sade was seen today for follow up. Diagnoses and all orders for this visit: Hypertension, benign Pure hypercholesterolemia Other orders - lisinopril-hydroCHLOROthiazide (PRINZIDE, ZESTORETIC) 20-25 mg per tablet; Take 1 tablet by mouth once daily. Blood pressure remains elevated. Continue lisinopril. Continue amlodipine. Add hydrochlorothiazide to his lisinopril. Monitor blood pressure regularly. Reduce salt. Reduce weight. Reduce stress. Increase exercise. Follow-up in 1 month One month follow up for Blood Pressure. Blood Pressure reading 170/108 this morning before medication. Patient provided with list of blood pressures before taking medication. Stated that it is still high after medication. No complaints of chest pain, dizziness, and/ or headache. Stephania Gao LPN May 19, 2022 11:32 AM documented in this encounter [facility] 05-10-2022 Miscellaneous Notes Requested Prescriptions Pending Prescriptions Disp Refills lisinopril (ZESTRIL, PRINIVIL) 20 mg tablet 90 tablet 3 Sig: Take 1 tablet by mouth once daily. amLODIPine (NORVASC) 5 mg tablet 90 tablet 3 Sig: Take 1 tablet by mouth once daily. Stephania Gao LPN May 10, 2022 9:23 AM documented in this encounter [facility] 04-27-2022 Miscellaneous Notes Patient has an appointment scheduled on 05-19-2022 for a follow up Stephaina Gao LPN April 27, 2022 10:17 AM ----- Message from Rigo Parker MD sent at 04/27/2022 10:01 AM EDT ----- Is this done? documented in this encounter [facility] 04-22-2022 Miscellaneous Notes April 23, 2022 PID: [id number] Sade RosarioBoris Ovalle [address] [place] [address] Dear Eziojulio, Your prior imaging studies have arrived and been compared to your current study. We are pleased to inform you that the results of your recent breast imaging exam on 04/20/2022 are normal. Early detection of cancer is very important. We also understand recommendations regarding breast cancer screening are controversial. Please discuss with your primary care provider which strategy is best for you and whether a mammogram is right for you. Your imaging studies and report will be kept on file at [facility] as part of your permanent medical record and are available for your continuing care. Thank you for allowing us to help in meeting your health care needs. Sincerely, Dr. Griffin Interpreting Radiologist [facility] (Normal [employer] compared) documented in this encounter [facility] 04-21-2022 Miscellaneous Notes Patient has appointment scheduled May 19, 2022 for follow up Stephania Gao LPN April 21, 2022 1:37 PM ----- Message from Rigo Parker MD sent at 04/21/2022 8:12 AM EDT ----- Make sure patient has f/u on imaging- documented in this encounter [facility] 04-21-2022 Miscellaneous Notes April 21, 2022 PID: [id number] Sade Ovalle [address] [place] [address] Dear Ms. Ovalle, Your breast imaging exam 04/20/2022 showed a possible finding that may require additional imaging studies for a complete evaluation. However, we recognize you have prior imaging stud ies at facilities other than [facility], and would like the opportunity to compare your recent imaging with those studies to evaluate for any change. At this time, we have requested your prior studies. If/when your prior studies arrive, a final report will be sent to your healthcare provider and/or you. In addition, you will receive a new result letter and or phone call If you need additional imaging. If we do not receive prior studies within 30 days of your exam, you will receive a reminder letter and or phone call to schedule your diagnostic imaging. Your imaging studies and reports are kept on file at [facility] as part of your permanent medical record, and are available for your continuing care. If you have any questions or concerns, please call [phone]. Thank you for choosing [facility] for your imaging needs. Sincerely, Dr. Griffin Interpreting Radiologist [facility] ([employer]) documented in this encounter [facility] 04-20-2022 History of Present illness Narrative Radiology Service Progress Note PATIENT NAME: Sade Ovalle DATE OF SERVICE: April 20, 2022 TIME: 2:13 PM PATIENT IDENTITY VERIFICATION COMPLETED USING TWO (2) IDENTIFIERS: Name and Date of confirmed by patient verbally. FALL SCREENING: Has the patient had 2 falls in the last year or 1 fall with injury or currently using an Ambulatory Assistive Device (Walker, Cane, Wheelchair, Crutches, etc.)? No PATIENT GENDER DATA: Female. status: : No status: NO. PATIENT RELEVANT IMPLANT DATA REVIEWED: Not Applicable RADIOLOGY DEPARTMENT: Mammography PERIPHERAL IV DATA: Not applicable SIGNED BY: RT Raf(R) April 20, 2022 2:13 PM documented in this encounter [facility] 04-13-2022 History of Present illness Narrative This note was created using Rostelecomriter. Subjective Sade Ovalle is a 71 year old female. She presents today for follow-up from the emergency room for elevated blood pressure. Blood pressure was over 200 when she was at the emergency room. She had her lisinopril increased to 20 mg daily and amlodipine 5 mg added to her regimen. Her blood pressure remains somewhat elevated today. But it is improved from emergency room visit. Review of Systems Constitutional: Negative. HENT: Negative. Eyes: Negative. Respiratory: Negative. Cardiovascular: Negative. Gastrointestinal: Negative. Endocrine: Negative. Genitourinary: Negative. Musculoskeletal: Negative. Skin: Negative. Allergic/Immunologic: Negative. Neurological: Negative. Hematological: Negative. Psychiatric/Behavioral: Negative. Objective BP 150/98 (BP Site: Left Arm, BP Cuff Size: Large Adult) Pulse 76 Temp 36.1 C (96.9 F) (Temporal) Resp 14 Wt 107.9 kg (237 lb 12.8 oz) SpO2 95% BMI 43.49 kg/m Physical Exam Vitals reviewed. Constitutional: Appearance: Normal appearance. HENT: Head: Normocephalic and atraumatic. Nose: Nose normal. Eyes: Extraocular Movements: Extraocular movements intact. Pupils: Pupils are equal, round, and reactive to light. Cardiovascular: Rate and Rhythm: Normal rate and regular rhythm. Pulmonary: Effort: Pulmonary effort is normal. Breath sounds: Normal breath sounds. Abdominal: General: Bowel sounds are normal. Palpations: Abdomen is soft. Musculoskeletal: General: Normal range of motion. Cervical back: Normal range of motion and neck supple. Skin: General: Skin is warm and dry. Capillary Refill: Capillary refill takes less than 2 seconds. Neurological: General: No focal deficit present. Mental Status: She is alert and oriented to person, place, and time. Mental status is at baseline. Psychiatric: Mood and Affect: Mood normal. Behavior: Behavior normal. Assessment and Plan Sade was seen today for follow up. Diagnoses and all orders for this visit: Hypertension, benign Pure hypercholesterolemia Other orders - lisinopril (ZESTRIL, PRINIVIL) 20 mg tablet; Take 1 tablet by mouth once daily. Continue to monitor blood pressure regularly. Reduce salt. Reduce weight. Reduce stress. Increase exercise as tolerated. documented in this encounter [facility] 03-31-2022 History of Present illness Narrative This note was created using eFanster. Subjective Sade Ovalle is a 71 year old female. Sade presents today for follow-up for multiple medical problems. See list. Her chronic medical problems been stable. Her blood pressures been under good control at home on her current regimen. Her cholesterol is well controlled with simvastatin. She has no new complaints today. Review of Systems Constitutional: Negative. HENT: Negative. Eyes: Negative. Respiratory: Negative. Cardiovascular: Negative. Gastrointestinal: Negative. Endocrine: Negative. Genitourinary: Negative. Musculoskeletal: Negative. Skin: Negative. Allergic/Immunologic: Negative. Neurological: Negative. Hematological: Negative. Psychiatric/Behavioral: Negative. Objective BP 150/96 (BP Site: Right Arm, BP Cuff Size: Large Adult) Pulse 64 Temp 36.4 C (97.5 F) (Temporal) Resp 14 Ht 157.5 cm (5' 2 ) Wt 109.1 kg (240 lb 9.6 oz) SpO2 96% BMI 44.01 kg/m Physical Exam Vitals reviewed. Constitutional: Appearance: Normal appearance. HENT: Head: Normocephalic and atraumatic. Nose: Nose normal. Eyes: Extraocular Movements: Extraocular movements intact. Pupils: Pupils are equal, round, and reactive to light. Cardiovascular: Rate and Rhythm: Normal rate and regular rhythm. Pulmonary: Effort: Pulmonary effort is normal. Breath sounds: Normal breath sounds. Abdominal: General: Bowel sounds are normal. Palpations: Abdomen is soft. Musculoskeletal: General: Normal range of motion. Cervical back: Normal range of motion and neck supple. Skin: General: Skin is warm and dry. Capillary Refill: Capillary refill takes less than 2 seconds. Neurological: General: No focal deficit present. Mental Status: She is alert and oriented to person, place, and time. Mental status is at baseline. Psychiatric: Mood and Affect: Mood normal. Behavior: Behavior normal. Assessment and Plan Sade was seen today for 6 month exam. Diagnoses and all orders for this visit: Primary hypertension - COMP METABOLIC PANEL; Future Mixed hyperlipidemia - COMP METABOLIC PANEL; Future - LIPID PANEL BASIC; Future Encounter for screening mammogram for malignant neoplasm of breast - [facility]NA SCREENING; Future documented in this encounter [facility] Diagnosis Hypertension, benign- Primary Essential hypertension, benign Pure hypercholesterolemia documented in this encounter [facility] note* Diagnosis Encounter for screening mammogram for malignant neoplasm of breast Other screening mammogram documented in this encounter [facility] note* Diagnosis Counseling regarding advanced directives- Primary Other specified counseling Wellness examination Hypertension, essential Unspecified essential hypertension Pure hypercholesterolemia Screening for deficiency anemia Screening for other and unspecified deficiency anemia documented in this encounter [facility] note* Diagnosis Hypertension, benign- Primary Essential hypertension, benign [facility]* Diagnosis Hypertension, essential- Primary Unspecified essential hypertension Pure hypercholesterolemia documented in this encounter [facility] note* Diagnosis Hypertension, essential- Primary Unspecified essential hypertension Edema of both lower extremities Pure hypercholesterolemia Fatigue, unspecified type Vitamin D deficiency Unspecified vitamin D deficiency Screening for colon cancer Special screening for malignant neoplasms, colon Screening mammogram for breast cancer documented in this encounter [facility] for referral (narrative)* Diagnostic Procedure Only (Routine) - Pending Review Specialty Diagnoses / Procedures Referred By Felicia arreaga Referred To Contact [facility] Diagnoses Encounter for screening mammogram for malignant neoplasm of breast Procedures INNA SCREENING SCREENING MAMMOGRAPHY BI 2-VIEW BREAST INC CAD Rigo Parker MD [address] [place] [address] [facility] [address] [place] [address] Referral ID Status Reason Start Date Expiration Date Visits Requested Visits Authorized [id number] Pending Review Auto-Generat ed Referral 03/31/2022 04/30/2023 1 1 [facility] for referral (narrative)* Diagnostic Procedure Only (Routine) - Closed Specialty Diagnoses / Procedures Referred By Contesha t Referred To Contact [facility] Diagnoses Encounter for screening mammogram for malignant neoplasm of breast Procedures INNA SCREENING SCREENING MAMMOGRAPHY BI 2-VIEW BREAST INC Rigo Thompson MD [address] [place] [address] [facility] [address] [place] [address] Referral ID Status Reason Start Date Expiration Date V isits Requested Visits Authorized [id number] Closed Auto-Generate d Referral 03/31/2022 04/30/2023 1 1 [facility] for visit Narrative* Diagnostic Procedure Only (Routine) - Closed Specialty Diagnoses / Procedures Referred By Belindaac t Referred To Contact [facility] Diagnoses Encounter for screening mammogram for malignant neoplasm of breast Procedures INNA SCREENING SCREENING MAMMOGRAPHY BI 2-VIEW BREAST INC Rigo Thompson MD [address] [place] [address] [facility] [address] [place] [address] Referral ID Status Reason Start Date Expiration Date V isits Requested Visits Authorized [id number] Closed Auto-Generate d Referral 03/31/2022 04/30/2023 1 1 [facility] Summary Purpose Family History No Family History Records FoundNo Family History Records FoundNo Family History Records Found Advance Directives No Advanced Directives Records FoundNo Advanced Directives Records FoundNo Advanced Directives Records Found Reason for Referral Specialty Diagnoses / Procedures Referred By Contac t Referred To Contact Gastroenterology Diagnoses Screening for colon cancer Procedures CONSULT TO GASTROENTEROLOGY OFFICE/OUTPATIENT [facility] 60-74 MINUTES Rigo Parker MD [address] [place] [address] Referral ID Status Reason Start Date Expiration Date Visits Requested Visits Authorized [id number] Pending Review PCP Requested Referral 04/06/2023 04/05/2024 1 1 Specialty Diagnoses / Procedures Referred By Belindaac t Referred To Contact [facility] Diagnoses Screening mammogram for breast cancer Procedures INNA SCREENING SCREENING MAMMOGRAPHY BI 2-VIEW BREAST INC Rigo Thompson MD [address] [place] [address] [facility] [address] [place] [address] Referral ID Status Reason Start Date Expiration Date Visits Requested Visits Authorized [id number] Authorized Auto-Generat ed Referral 04/06/2023 05/05/2024 1 1 Additional Source Comments INFORMATION SOURCE (unrecogn ized section and content) DATE CREATED AUTHOR AUTHOR'S ORGANIZ ATION 05/14/2023 [facility] DATE CREATED AUTHOR AUTHOR'S ORGANIZ ATION 08/19/2023 [facility] Ce [facility]ter Source Comments (unrecognize d section and content) In the event this informatio n is protected by the Federal Confidentiality of Alcohol and Drug Abuse Patient Records regulations: The Federal rules restrict any use of the information to criminally investigate or prosecute any alcohol or drug abuse patient.[facility] the event this information is protected by the Federal Confidentiality of Alcohol and Drug Abuse Patient Records regulations: The Federal rules restrict any use of the information to criminally investigate or prosecute any alcohol or drug abuse patient.[facility] the event this information is protected by the Federal Confidentiality of Alcohol and Drug Abuse Patient Records regulations: The Federal rules restrict any use of the information to criminally investigate or prosecute any alcohol or drug abuse patient.[facility] the event this information is protected by the Federal Confidentiality of Alcohol and Drug Abuse Patient Records regulations: The Federal rules restrict any use of the information to criminally investigate or prosecute any alcohol or drug abuse patient.[facility] the event this information is protected by the Federal Confidentiality of Alcohol and Drug Abuse Patient Records regulations: The Federal rules restrict any use of the information to criminally investigate or prosecute any alcohol or drug abuse patient.[facility] the event this information is protected by the Federal Confidentiality of Alcohol and Drug Abuse Patient Records regulations: The Federal rules restrict any use of the information to criminally investigate or prosecute any alcohol or drug abuse patient.[facility] the event this information is protected by the Federal Confidentiality of Alcohol and Drug Abuse Patient Records regulations: The Federal rules restrict any use of the information to criminally investigate or prosecute any alcohol or drug abuse patient.[facility] the event this information is protected by the Federal Confidentiality of Alcohol and Drug Abuse Patient Records regulations: The Federal rules restrict any use of the information to criminally investigate or prosecute any alcohol or drug abuse patient.[facility] the event this information is protected by the Federal Confidentiality of Alcohol and Drug Abuse Patient Records regulations: The Federal rules restrict any use of the information to criminally investigate or prosecute any alcohol or drug abuse patient.[facility] the event this information is protected by the Federal Confidentiality of Alcohol and Drug Abuse Patient Records regulations: The Federal rules restrict any use of the information to criminally investigate or prosecute any alcohol or drug abuse patient.[facility] the event this information is protected by the Federal Confidentiality of Alcohol and Drug Abuse Patient Records regulations: The Federal rules restrict any use of the information to criminally investigate or prosecute any alcohol or drug abuse patient.[facility] West[facility] the event this information is protected by the Federal Confidentiality of Alcohol and Drug Abuse Patient Records regulations: The Federal rules restrict any use of the information to criminally investigate or prosecute any alcohol or drug abuse patient.[facility] WestIn the event this information is protected by the Federal Confidentiality of Alcohol and Drug Abuse Patient Records regulations: The Federal rules restrict any use of the information to criminally investigate or prosecute any alcohol or drug abuse patient.[facility] WestIn the event this information is protected by the Federal Confidentiality of Alcohol and Drug Abuse Patient Records regulations: The Federal rules restrict any use of the information to criminally investigate or prosecute any alcohol or drug abuse patient.[facility] West[facility] the event this information is protected by the Federal Confidentiality of Alcohol and Drug Abuse Patient Records regulations: The Federal rules restrict any use of the information to criminally investigate or prosecute any alcohol or drug abuse patient.[facility] West[facility] the event this information is protected by the Federal Confidentiality of Alcohol and Drug Abuse Patient Records regulations: The Federal rules restrict any use of the information to criminally investigate or prosecute any alcohol or drug abuse patient.[facility] West[facility] the event this information is protected by the Federal Confidentiality of Alcohol and Drug Abuse Patient Records regulations: The Federal rules restrict any use of the information to criminally investigate or prosecute any alcohol or drug abuse patient.[facility] West[facility] the event this information is protected by the Federal Confidentiality of Alcohol and Drug Abuse Patient Records regulations: The Federal rules restrict any use of the information to criminally investigate or prosecute any alcohol or drug abuse patient.[facility] WestIn the event this information is protected by the Federal Confidentiality of Alcohol and Drug Abuse Patient Records regulations: The Federal rules restrict any use of the information to criminally investigate or prosecute any alcohol or drug abuse patient.[facility] Reason for Visit (unrecogniz ed section and content) Reason Comments Follow Up [facility] ER f/u for elevated bp on 04/08 Reason Comments Results Reason Onset Date Comments Refill Request 05/10/2022 Reason Comments Follow Up Reason Comments Medicare Wellness Exam Reason Comments Orders Reason Comments Refill Request Reason Comments 6 Month Exam Reason Comments Orders Compression Stocking s Reason Comments Referral Information Care Teams (unrecognized sec tion and content) Toolmaker Relationship Specialty Start Date End Date Rigo Parker MD [address] [place] [address] PCP - General Family Practice 04/12/22 Toolmaker Relationship Specialty Start Date End Date Rigo Parker MD [address] [place] [address] PCP - General Family Practice 04/12/22 Toolmaker Relationship Specialty Start Date End Date Rigo Parker MD [address] [place] [address] PCP - General Family Practice 04/12/22 Toolmaker Relationship Specialty Start Date End Date Rigo Parker MD [address] [place] [address] PCP - General Family Practice 04/12/22 Toolmaker Relationship Specialty Start Date End Date Rigo Parker MD [address] [place] [address] PCP - General Family Medicine 04/12/22 Toolmaker Relationship Specialty Start Date End Date Rigo Parker MD [address] [place] [address] PCP - General Family Medicine 04/12/22 Toolmaker Relationship Specialty Start Date End Date Rigo Parker MD [address] [place] [address] PCP - General Family Medicine 04/12/22 Toolmaker Relationship Specialty Start Date End Date Rigo Parker MD [address] [place] [address] PCP - General Family Medicine 04/12/22 Toolmaker Relationship Specialty Start Date End Date Rigo Parker MD [address] [place] [address] PCP - General Family Medicine 04/12/22 Toolmaker Relationship Specialty Start Date End Date Rigo Parker MD [address] [place] [address] PCP - General Family Medicine 04/12/22 Toolmaker Relationship Specialty Start Date End Date Rigo Parker MD [address] [place] [address] PCP - General Family Medicine 04/12/22 Toolmaker Relationship Specialty Start Date End Date Rigo Parker MD [address] [place] [address] PCP - General Family Medicine 04/12/22 Toolmaker Relationship Specialty Start Date End Date Rigo Parker MD [address] [place] [address] PCP - General Family Medicine 04/12/22 FOR RECORDS PERTAINING TO PATIENTS WHO ARE OR HAVE BEEN ENROLLED IN A CHEMICAL DEPENDENCY/SUBSTANCEABUSE PROGRAM, SOME INFORMATION MAY BE OMITTED. This clinical summary was aggregated from multiple sources. Caution should be exercised in using it in the provision of clinical care. This summary normalizes information from multiple sources, and as a consequence, information in this document may materially change the coding, format and clinical context of patient data. In addition, data may be omitted in some cases. CLINICAL DECISIONS SHOULD BE BASED ON THE PRIMARY CLINICAL RECORDS. [employer] [facility]. provides no warranty or guarantee of the accuracy or completeness of information in this document.
== END | disposition home or self-care (01) ==
LOC: LAB 12:41
PROVIDERS: PCP Family Medicine; Referring Provider Internal Medicine Cardiovascular Disease; Visit Provider Internal Medicine Cardiovascular Disease
DX: I10 Essential (primary) hypertension (principal); R00.2 Palpitations; R06.09 Other forms of dyspnea; R53.83 Other fatigue
CPT/HCPCS: 36415; 80053; 84443; 85025

== ENCOUNTER → 2023-11-16 | Outpatient (CLI) | payer MEDICARE, SELFPAY ==
--- NOTE | 2023-11-16 06:28 | ECHOCS_ITS ---
Reason For Study: DYSPNEA Procedure This was a 2D Doppler, Color Flow transthoracic echocardiogram. The study was technically difficult. Due to body habitus. Contrast injection was performed. Exam performed in department. Left Ventricle Mild concentric left ventricular hypertrophy. Normal LV size. The left ventricular ejection fraction is 75 %. Diastolic function is indeterminate. Right Ventricle Normal right ventricle. Atria The left and right atria are normal. Mitral Valve Trivial mitral valve insufficiency. Tricuspid Valve Trivial tricuspid valve insufficiency. Unable to estimate RV systolic pressure due to insufficient tricuspid regurgitant envelope. Aortic Valve The aortic valve is not well visualized. Aortic valve mean peak gradient 10 mmHg. Pulmonic Valve The pulmonic valve is not well visualized. Great Vessels Normal sized aortic root. Pericardium/Pleural Trivial pericardial effusion. Medication Diluted definity 3.0ml given slow IV push to enhance endocardial definition. MMode/2D Measurements & Calculations LVIDd: 5.1 cm IVSd: 0.98 cm LVOT diam: 2.0 cm LVIDs: 3.4 cm LVPWd: 1.2 cm RVDd: 3.5 cm FS: 34.3 % LVOT area: 3.1 cm2 Ao root diam: 2.5 cm LAV(MOD-bp): 51.7 ml LVAd ap4: 25.9 cm2 LAV(MOD-bp) Indexed: 24.6 ml/m2 LVLd ap4: 7.8 cm LAV(MOD-sp2): 42.5 ml EDV(MOD-sp4): 70.0 ml LAV(MOD-sp4): 56.9 ml EDV(sp4-el): 73.2 ml LVAs ap4: 9.0 cm2 LVLs ap4: 6.1 cm ESV(MOD-sp4): 12.0 ml ESV(sp4-el): 11.2 ml EF(MOD-sp4): 82.9 % EF(sp4-el): 84.7 % SV(MOD-sp4): 58.1 ml SV(sp4-el): 62.0 ml LA A4 area: 20.3 cm2 LA dimension(2D): 4.1 cm TAPSE: 2.6 cm Time Measurements MV dec time: 0.25 sec Doppler Measurements & Calculations MV E max cesar: 87.2 cm/sec Lat Peak E' Cesar: 8.4 cm/sec Med Peak E' Cesar: 8.0 cm/sec MV A max cesar: 98.9 cm/sec E/E' lat: 10.4 E/E' med: 10.9 MV E/A: 0.88 MV V2 max: 106.1 cm/sec MV P1/2t max cesar: 95.9 cm/sec Ao V2 max: 214.9 cm/sec MV max P.5 mmHg MV P1/2t: 73.7 msec Ao max P.5 mmHg MV V2 mean: 52.7 cm/sec Ao V2 mean: 151.2 cm/sec MV mean P.3 mmHg MV dec slope: 381.2 cm/sec2 Ao mean P.2 mmHg MV V2 VTI: 30.7 cm MVA(P1/2t): 3.0 cm2 Ao V2 VTI: 51.6 cm AV (velocity ratio): 0.73 MVA(VTI): 3.8 cm2 LIZETT(I,D): 2.2 cm2 LIZETT(V,D): 2.1 cm2 LV V1 max: 144.6 cm/sec SV(LVOT): 115.5 ml PA V2 max: 130.9 cm/sec LV V1 max P.4 mmHg PA V2 mean: 87.2 cm/sec LV V1 mean P.3 mmHg LV V1 mean: 112.4 cm/sec LV V1 VTI: 37.4 cm ECHO/Echo Complete W/ Contrast Interpretation Summary Mild concentric left ventricular hypertrophy. The left ventricular ejection fraction is 75 %. Diastolic function is indeterminate. Aortic valve not well-visualized however mean peak gradient noted to be 10 mmHg . Consider mild aortic valve stenosis. Technically difficult study. Ordering Physician: Patricia Velez Referring Physician: Talib Erickson Performed By: Sharmaine Merlos, RDCS, RVT
--- NOTE | 2023-11-16 15:43 | STRESSREP ---
Stress Test Report Date: 11/16/2023 Procedure: Pharmacologic stress nuclear imaging study Indications: Dyspnea on exertion Consent: Per the patient Procedure: The patient underwent pharmacologic (Regadenoson 0.4mg ) evaluation with a peak heart rate of 94 beats per minute (63%predicted maximal heart rate) and a peak blood pressure of 122/78 mmHg. The baseline ECG demonstrated sinus rhythm. The peak pharmacologic ECG demonstrated no ischemic changes. There were no cardiac dysrhythmias pretest, during pharmacologic infusion, or recovery. There was no complaint of chest discomfort during pharmacologic infusion or recovery. The patient was injected with 14.8 millicuries of technetium 99m Cardiolite and subsequently rest SPECT Cardiolite nuclear imaging was obtained in the horizontal long, vertical long, and short axis views. The patient underwent pharmacologic (Regadenoson) evaluation. The patient was injected with 45.0 millicuries of technetium 99m Cardiolite and subsequently stress SPECT Cardiolite nuclear imaging was obtained in the horizontal long, vertical long, and short axis views. A gated Cardiolite study at peak stress was obtained. The examination was stopped secondary to completion of protocol. Rest and stress SPECT Cardiolite nuclear imaging status post realignment, and normalization show no fixed or reversible perfusion defects. There is end systolic thickening and brightening. The gated Cardiolite study demonstrates myocardial thickening and inward wall motion. The reported LVEF is 81%. Impression: 1. Pharmacologic (Regadenoson) evaluation 2. Peak pharmacologic ECG with no ischemic changes. 3. There were no cardiac dysrhythmias pretest, during pharmacologic infusion, or recovery. 5. Rest and stress SPECT Cardiolite nuclear imaging demonstrate relative uniform tracer uptake and myocardial perfusion appearing within normal limits. 6. The gated Cardiolite study reports an LVEF of 81%. This note was generated with [employer] software. It may contain incorrect words, spelling, and punctuation that were not noted in checking the note before signing.
== END | disposition home or self-care (01) ==
LOC: CVS 06:27
PROVIDERS: PCP Internal Medicine; Referring Provider Internal Medicine Cardiovascular Disease; Visit Provider Internal Medicine Cardiovascular Disease
DX: R06.09 Other forms of dyspnea (principal); I10 Essential (primary) hypertension; R53.83 Other fatigue; R07.9 Chest pain, unspecified
CPT/HCPCS: 78452; 93017; 93306; A9500; Q9957; A4216; C8929; J2785

== ENCOUNTER → 2024-01-06 | Outpatient (CLI) | payer MEDICARE, SELFPAY ==
[2024-01-06 15:57] LABS: Anion Gap 6 (5-15); BUN 25 mg/dL (7-18); BUN/Creat Ratio 37.1 RATIO (10-20); Calcium,Total 10.5 mg/dL (8.5-10.1); Chloride 103 mmol/L (98-107); Cholesterol 162 mg/dL (200); Creatinine, Serum 0.67 mg/dL (0.55-1.02); EST Glomerular Filtration Rate 92 mL/min (>60); Est Glom Filt Rate - Afr Amer 111 mL/min (>60); Glucose 72 mg/dL (74-106); High Density Lipoprotein 64 mg/dL; Potassium 4.5 mmol/L (3.5-5.1); Sodium Level 141 mmol/L (136-145); Triglycerides 140 mg/dL; Very Low Density Lipoprotein 28 mg/dL (5-40)
== END | disposition home or self-care (01) ==
PROVIDERS: PCP Internal Medicine; Visit Provider Internal Medicine
DX: I10 Essential (primary) hypertension (principal)
CPT/HCPCS: 36415; 80048; 80061

== ENCOUNTER → 2024-01-11 | Outpatient (CLI) | payer MEDICARE, SELFPAY ==
[2024-01-11 15:38] LABS: Vitamin D,25 Hydroxy 80.8 ng/mL
[2024-01-11 16:59] LABS: PTHIN 22.7 pg/mL (18.4-80.1)
== END | disposition home or self-care (01) ==
LOC: BIMLAB 13:04
PROVIDERS: PCP Internal Medicine; Visit Provider Internal Medicine
DX: E83.52 Hypercalcemia (principal); E78.5 Hyperlipidemia, unspecified
CPT/HCPCS: 36415; 82306; 83970

== ENCOUNTER → 2024-01-19 | Outpatient (CLI) | payer MEDICARE, SELFPAY | END | disposition home or self-care (01) | LOC: SL 13:03 | PROVIDERS: PCP Internal Medicine; Referring Provider Internal Medicine; Visit Provider Internal Medicine | DX: G47.10 Hypersomnia, unspecified (principal) | CPT/HCPCS: 95806 ==

== ENCOUNTER → 2024-02-07 | Outpatient (CLI) | payer MEDICARE, SELFPAY ==
--- NOTE | 2024-02-07 10:35 | BI_ITS ---
MAMMOGRAPHY - BILATERAL SCREENING REASON FOR EXAM: Female, 73 years old. Routine annual screening examination. PERTINENT HISTORY: Non-contributory. Remote left stereotactic breast biopsy. TECHNIQUE: Digital bilateral breast moira (3D mammographic acquisition) in the CC and MLO projections. 2-D mediolateral oblique (MLO) and craniocaudad (CC) views of both breasts were obtained. CAD: Full Field Digital Mammography with Computer Added Detection was performed. COMPARISON: Comparison is made with prior outside examination dated May 12, 2023 and January 26, 2021. FINDINGS: Breast Composition: There are scattered areas of fibroglandular density. There are no dominant masses or suspicious calcifications. Fat-containing bilateral axillary lymph nodes. No other significant abnormalities are identified. There has been no significant change since the prior study. BI/SCRN MAMM (CAD)W/MOIRA BILAT IMPRESSION: Stable bilateral screening mammogram. Yearly follow-up mammogram recommended. (A) ASSESSMENT CATEGORY: BIRADS Category 2: Benign. A letter regarding these results will be sent to the patient by the facility within 30 days. Approximately 10% of breast cancers are not detected by mammography. A normal mammogram should not delay biopsy of a clinically suspicious abnormality. [id number] Electronically Signed: Ck Salamanca MD at 8:22 EDT ,
--- NOTE | 2024-02-07 10:55 | BD_ITS ---
STUDY: DUAL ENERGY X-RAY ABSORPTIOMETRY / DXA REASON FOR EXAM: Female, 73 years old. Post menopausal TECHNIQUE: Bone Mineral Density (BMD) measurements of lumbar spine and bilateral hips were obtained. COMPARISON: None. FINDINGS: Lumbar Spine (L1-L4): g/cm2 (1.139) / T-score (1.1) / Z-score (3.3) Findings are suggestive of normal bone density with a low fracture risk. Left Femur Total: g/cm2 (1.138) / T-score (1.6) / Z-score (3.2) Left Femoral Neck: g/cm2 (0.789) / T-score (-0.5) / Z-score (1.3) Right Femur Total: g/cm2 (0.995) / T-score (0.4) / Z-score (2.0) Right Femoral Neck: g/cm2 (0.686) / T-score (-1.5) / Z-score (0.4) BD/Dexa Bone Density Study IMPRESSION: The patient is considered normal as outlined below according to World [place] Organization (WHO) criteria with a low fracture risk. Reference Information: The T-score is the number of standard deviations above or below the standard which is normal for young adults at their peak bone mineral density. The World Health Organization (WHO) interprets the T-scores as follows: Above -1 Normal bone density Between -1 and -2.5 Osteopenia Equal to / or below -2.5 Osteoporosis As a practical clinical guideline, osteopenia may be graded as follows: Mild -1 through -1.5 Moderate -1.6 through -2.0 Severe -2.1 through -2.4 The Z-score is the number of standard deviations above or below age-matched controls. A Z-score of less than -1.5 would be considered abnormal. References: 1. NIH Osteoporosis and Related Bone Diseases www osteo.org 2. International Society for Clinical Densitometry www iscd.org 3. National Osteoporosis Foundation www nof.org Electronically Signed: Ck Salamanca MD at 11:22 EDT ,
== END | disposition home or self-care (01) ==
LOC: OPBD 10:35
PROVIDERS: PCP Internal Medicine; Referring Provider Internal Medicine; Visit Provider Internal Medicine
DX: Z12.31 Encounter for screening mammogram for malignant neoplasm of breast (principal); Z78.0 Asymptomatic menopausal state
CPT/HCPCS: 77063; 77067; 77080

== ENCOUNTER → 2024-04-11 | Outpatient (CLI) | payer MEDICARE, SELFPAY ==
[2024-04-11 17:22] LABS: Anion Gap 2 (5-15); BUN 22 mg/dL (7-18); BUN/Creat Ratio 26.3 RATIO (10-20); Calcium,Total 9.4 mg/dL (8.5-10.1); Chloride 107 mmol/L (98-107); Creatinine, Serum 0.84 mg/dL (0.55-1.02); EST Glomerular Filtration Rate 71 mL/min (>60); Est Glom Filt Rate - Afr Amer 86 mL/min (>60); Glucose 117 mg/dL (74-106); Potassium 3.8 mmol/L (3.5-5.1); Sodium Level 141 mmol/L (136-145)
== END | disposition home or self-care (01) ==
LOC: BIMLAB 10:23
PROVIDERS: PCP Internal Medicine; Referring Provider Internal Medicine; Visit Provider Internal Medicine
DX: I10 Essential (primary) hypertension (principal)
CPT/HCPCS: 36415; 80048

== ENCOUNTER → 2024-07-04 | Outpatient (CLI) | payer MEDICARE, SELFPAY ==
[2024-07-04 12:20] LABS: Absolute Neutrophil Count 4.1 X10^3/uL (2.0-7.7); Basophil# 0.04 X10^3/uL; Basophil% 0.6 % (0-1); Eosinophil# 0.18 X10^3/uL; Eosinophils% 2.8 % (0-5); Hematocrit 40.3 % (37-47); Hemoglobin 12.7 g/dL (12.0-15.0); Lymphocyte % 25.1 % (19-41); Mean Corp Hgb Conc 31.5 g/dL (32-36); Mean Corpuscular Volume 85.6 fL (81-99); Mean Platelet Vol. 11.3 fl (6.2-12.0); Monocyte# 0.42 X10^3/uL; Monocyte% 6.6 % (0-10); NRBC Flagged by Analyzer 0 % (0-5); Neutrophil # 4.09 X10^3/uL (2.7-7.7); Neutrophil % 64.3 % (47-70); Platelet Count 247 K/mm3 (150-450); RBC Distribution Width CV 14.2 % (11.6-14.6); RBC Distribution Width SD 44.4 fl (35.1-43.9); Red Blood Count 4.71 M/mm3 (4.2-5.4); White Blood Count 6.4 K/mm3 (4.4-11.0)
[2024-07-04 12:42] LABS: ALB/GLOB Ratio 1.2 RATIO (0.9-2.4); AST(SGOT) 13 U/L (15-37); Alanine Aminotransfer ALT/SGPT 29 U/L (13-56); Albumin, Serum 3.6 g/dL (3.2-5.0); Alkaline Phosphatase 33 U/L (45-117); Anion Gap 5 (5-15); BUN 23 mg/dL (7-18); BUN/Creat Ratio 30.7 RATIO (10-20); Calcium,Total 8.8 mg/dL (8.5-10.1); Chloride 107 mmol/L (98-107); Creatinine, Serum 0.75 mg/dL (0.55-1.02); EST Glomerular Filtration Rate 81 mL/min (>60); Est Glom Filt Rate - Afr Amer 98 mL/min (>60); Globulin 3.1 g/dL (2.2-4.2); Glucose 109 mg/dL (74-106); Potassium 4.2 mmol/L (3.5-5.1); Protein, Total 6.7 g/dL (6.4-8.2); Sodium Level 142 mmol/L (136-145)
== END | disposition home or self-care (01) ==
LOC: BIMLAB 09:14
PROVIDERS: PCP Internal Medicine; Referring Provider Internal Medicine; Visit Provider Internal Medicine
DX: I10 Essential (primary) hypertension (principal)
CPT/HCPCS: 36415; 80053; 85025

== ENCOUNTER → 2024-07-31 | Outpatient (CLI) | payer MEDICARE, SELFPAY ==
--- NOTE | 2024-07-31 14:32 | CT_ITS ---
STUDY: LOW DOSE CT LUNG CANCER SCREENING REASON FOR EXAM: Female, 73 years old. Lung cancer screening -- and gt;20 pk yr hx;utkah3l smoker; asymptomatic RADIATION DOSAGE (If Supplied By Facility): CTDIvol = ( 4.02 ) mGy, DLP = ( 138.93 ) mGycm TECHNIQUE: No contrast was administered. Low dose technique was utilized (average mAS-38 and kVp 120). 1.25 mm axial source images with a slice interval of 1.25-mm were reconstructed in lung windows. 2.5 mm axial source images with a slice interval of 2.5-mm were reconstructed in lung windows. 5.0 mm axial source images with a slice interval of 5.0-mm were reconstructed in soft tissue windows. COMPARISON: None. NODULES: No suspicious nodules are seen. Emphysema: Mild degree of emphysematous changes. Mild scarring in the lingular segment of the left upper lobe. Endobronchial lesion: Unremarkable Aorta: Atherosclerotic plaque formation. CORONARY ARTERIES: Coronary artery calcification is seen. Heart: Unremarkable Pulmonary artery: Unremarkable Mediastinal nodes: Unremarkable Other chest and abdominal findings: CT/Low Dose CT Lung Screening IMPRESSION: Lung-RADS category 2 - Continue annual screening with LDCT in 12 months. IMPORTANT NOTES FOR USE: ACR Lung-RADS Version 1.1 Assessment Categories Release Date: 2018 Category: Coded 0-4 bases on nodule(s) with highest degree of suspicion. Negative screen is defined as categories 1 and 2; a positive screen is defined as categories 3 and 4. Category 3 and 4A nodules that are unchanged on interval CT should be coded as category 2, and individuals returned to screening in 12 months. Category 4X: Category 3 or 4 nodules with additional imaging findings that increase the suspicion of lung cancer, such as spiculation, GGN that doubles in size in 1 year, enlarged lymph notes, etc. Category Modifiers: S (significant finding unrelated to lung cancer) Electronically Signed: Ck Salamanca MD at 15:11 EST ,
== END | disposition home or self-care (01) ==
LOC: CT 14:32
PROVIDERS: PCP Internal Medicine; Referring Provider Nurse Practitioner Family; Visit Provider Nurse Practitioner Family
DX: Z12.2 Encounter for screening for malignant neoplasm of respiratory organs (principal); Z87.891 Personal history of nicotine dependence
CPT/HCPCS: 71271

== ENCOUNTER → 2025-01-08 | Outpatient (CLI) | payer MEDICARE, SELFPAY ==
[2025-01-08 13:39] VITALS: PULSE 101; PULSE 102; PULSE 103; PULSE 104; PULSE 105; PULSE 106; PULSE 97; PULSE 98; O2SAT 87; O2SAT 89; O2SAT 92; O2SAT 96
--- NOTE | 2025-01-08 13:40 | CPS ---
Pt needed 2lpm O2 to get SpO2 into the 90's. Pt is already established with [facility] and wants to stay with them. This RT talked to Dr Erickson's staff and they took notes to give her so O2 can be ordered and set up on this patient.
--- NOTE | 2025-01-14 07:20 | PCM.PSN.6M ---
PSN 6 Minute Walk Test 6 Minute Walk Test 6 Minute Walk Test: 6 Minute Walk Test PSN:6-Minute Walk Test Start: 01/08/25 13:39 Freq: Status: Active Protocol: [id number] Document 01/08/25 13:39 [facility]B (Rec: 01/08/25 13:49 WLB [id number]) 6 Minute Walk Test Date Performed 01/08/25 Time Performed 12:53 Height 5 ft 2 in Weight: 253 lb Weight in Pounds 253.[address]: Talib Erickson Assistive device None used: Pre-test Oxygen Delivery Room Air Method Pulse Ox (%) 87 Pulse Rate (60-100 106 H beats/min) Dyspnea Cheli Scale ( 3 0-10) Exertion Cheli Scale 13 (6-20) Reported Symptoms Increased Work of Breathing 1st minute Oxygen Flow Rate (L/ 1 min) (L/min) Oxygen Delivery Nasal Cannula Method Pulse Ox (%) 89 Pulse Rate (60-100 103 H beats/min) Number of Rests 0 Taken Reported Symptoms Increased Work of Breathing 2nd minute Oxygen Flow Rate (L/ 1 min) (L/min) Oxygen Delivery Nasal Cannula Method Pulse Ox (%) 89 Pulse Rate (60-100 104 H beats/min) Number of Rests 0 Taken Reported Symptoms Increased Work of Breathing 3rd minute Oxygen Flow Rate (L/ 2 min) (L/min) Oxygen Delivery Nasal Cannula Method Pulse Ox (%) 92 Pulse Rate (60-100 105 H beats/min) Number of Rests 0 Taken Reported Symptoms Increased Work of Breathing 4th minute Oxygen Flow Rate (L/ 2 min) (L/min) Oxygen Delivery Nasal Cannula Method Pulse Ox (%) 92 Pulse Rate (60-100 97 beats/min) Number of Rests 0 Taken 5th minute Oxygen Flow Rate (L/ 2 min) (L/min) Oxygen Delivery Nasal Cannula Method Pulse Ox (%) 92 Pulse Rate (60-100 102 H beats/min) Number of Rests 0 Taken 6th minute Oxygen Flow Rate (L/ 2 min) (L/min) Oxygen Delivery Nasal Cannula Method Pulse Ox (%) 92 Pulse Rate (60-100 101 H beats/min) Dyspnea Cheli Scale ( 3 0-10) Exertion Cheli Scale 13 (6-20) Number of Rests 0 Taken Post-test Oxygen Flow Rate (L/ 2 min) (L/min) Oxygen Delivery Nasal Cannula Method Pulse Ox (%) 96 Pulse Rate (60-100 98 beats/min) Dyspnea Cheli Scale ( 2 0-10) Exertion Cheli Scale 11 (6-20) Full Laps Walked 12 Partial Lap, Number 0 of Tiles Walked Total Distance 708 Walked (ft) 01/08/25 13:40 (created 01/08/25 13:47) Cardiopulmonary Services by Candie Holloway Pt needed 2lpm O2 to get SpO2 into the 90's. Pt is already established with [facility] and wants to stay with them. This RT talked to Dr Erickson's staff and they took notes to give her so O2 can be ordered and set up on this patient. Initialized on 01/08/25 13:47 - END OF NOTE Interpretation Interpretation: The patient ambulated 780 feet over the course of 6 minutes beginning on room air without assistive devices. Pretesting oxygen saturation was noted to be 87% on room air. 1 L/min of supplemental oxygen was applied for the commencement of testing. With ambulation, however, the patient continued to desaturate, requiring an escalation in flow rate to 2 L/min to maintain appropriate oxygen saturations. Recommendations Recommendations: 2 L/min of supplemental oxygen should be used both at rest and with exertion.
== END | disposition home or self-care (01) ==
LOC: PSN 12:47
PROVIDERS: PCP Internal Medicine; Referring Provider Internal Medicine; Visit Provider Internal Medicine
DX: R06.09 Other forms of dyspnea (principal)

== ENCOUNTER → 2025-01-11 | Outpatient (CLI) | payer MEDICARE, SELFPAY | END | disposition home or self-care (01) | LOC: PSN 10:36 | PROVIDERS: PCP Internal Medicine; Referring Provider Internal Medicine; Visit Provider Internal Medicine | DX: R06.02 Shortness of breath (principal); R06.09 Other forms of dyspnea | CPT/HCPCS: 94060; 94726; 94729 ==

== ENCOUNTER → 2025-03-20 | Outpatient (CLI) | payer MEDICARE, SELFPAY ==
[2025-03-20 13:06] LABS: AST(SGOT) 19 U/L (<=31); Alanine Aminotransfer ALT/SGPT 27 U/L (<=34); Albumin, Serum 4.2 g/dL (3.4-4.8); Alkaline Phosphatase 34 U/L (35-104); Anion Gap 11 (5-15); BUN 26 mg/dL (4-19); BUN/Creat Ratio 28.6 RATIO (10-20); Calcium,Total 9.7 mg/dL (7.6-11.0); Carbon Dioxide 28.2 mmol/L (21.0-32.0); Chloride 105 mmol/L (98-108); Cholesterol 157 mg/dL (<=200); Globulin 2.5 g/dL (2.2-4.2); Glucose 114 mg/dL (70-99); Low Density Lipoprotein Calc. 72 mg/dL; Potassium 4.1 mmol/L (3.3-5.1); Triglycerides 104 mg/dL; Very Low Density Lipoprotein 21 mg/dL (5-40); cholesterol:hdl ratio screen 2.45
== END | disposition home or self-care (01) ==
LOC: BIMLAB 09:09
PROVIDERS: PCP Internal Medicine; Visit Provider Internal Medicine
DX: I10 Essential (primary) hypertension (principal); E78.5 Hyperlipidemia, unspecified
CPT/HCPCS: 36415; 80053; 80061

== ENCOUNTER → 2025-04-05 | Outpatient (CLI) | payer MEDICARE, SELFPAY ==
--- NOTE | 2025-04-05 08:45 | BI_ITS ---
EXAM: SCRN MAMM (CAD)W/MOIRA BILAT DATE: 04/05/2025 CLINICAL HISTORY: F, Age 74 y/o , BREAST CANCER SCREENING TECHNIQUE: SCRN MAMM (CAD)W/MOIRA BILAT COMPARISON: Prior exam(s) dated 02/07/2024, 01/26/2021, 01/25/2020. FINDINGS: TISSUE DENSITY: There are scattered areas of fibroglandular density. Bilateral Breast Mammographic Findings: No significant masses, calcifications or other abnormalities are identified. BI/SCRN MAMM (CAD)W/MOIRA BILAT IMPRESSION: There is no mammographic evidence of malignancy. OVERALL FINAL ASSESSMENT BI-RADS 1: NEGATIVE. RECOMMENDATION: Routine annual follow-up in 1 Year A letter with findings and recommendations will be mailed to the patient. Reading Location: [id number]
== END | disposition home or self-care (01) ==
LOC: OPBI 08:48
PROVIDERS: PCP Internal Medicine; Referring Provider Internal Medicine; Visit Provider Internal Medicine
DX: Z12.31 Encounter for screening mammogram for malignant neoplasm of breast (principal)
CPT/HCPCS: 77063; 77067

== ENCOUNTER → 2025-08-06 | Outpatient (CLI) | payer MEDICARE, SELFPAY ==
--- NOTE | 2025-08-06 14:10 | CT_ITS ---
PROCEDURE: LOW DOSE CT LUNG SCREENING 08/06/2025 REASON FOR EXAM: LUNG CANCER SCREENING . TECHNIQUE: Procedure Code: [id number] Modality: CT Procedure: LOW DOSE CT LUNG SCREENING Coronal and Sagittal reconstruction series were provided. One or more dose reduction techniques were used (e.g., Automated exposure control, adjustment of the mA and/or kV according to patient size, use of iterative reconstruction technique). REFERENCE LINK: [employer] Lung-RADS RADIATION DOSE SUMMARY: CTDlvol: 3.02 mGy DLP: 97.42 mGycm COMPARISON: July 31, 2024. FINDINGS: PULMONARY NODULES: (Only nodules >3mm are reported) Nodules described below are on series 1 unless otherwise specified. Pulmonary Nodules: No concerning pulmonary nodule is seen. Hardware:None Lymph Nodes:Small benign-appearing mediastinal lymph nodes. Heart and Vasculature:The heart is nonenlarged. Coronary Artery Calcifications: Present Lungs and Airways: Mild emphysematous changes are present. Mild scarring in the lingula segment of the left upper lobe. Pleura:No pleural effusion. Upper Abdomen:Unremarkable Bones:Degenerative changes of the thoracic spine. CT/Low Dose CT Lung Screening IMPRESSION: No suspicious pulmonary nodule seen. Coronary artery calcification (CAC) is is present Lung-RADS Category: 2 BENIGN (BASED ON IMAGING FEATURES OR INDOLENT BEHAVIOR). RECOMMEND 12-MONTH SCREENING LDCT. Other Significant Findings: Reading Location: [id number]
== END | disposition home or self-care (01) ==
LOC: CT 13:55
PROVIDERS: PCP Internal Medicine; Referring Provider Nurse Practitioner Family; Visit Provider Nurse Practitioner Family
DX: Z12.2 Encounter for screening for malignant neoplasm of respiratory organs (principal); Z87.891 Personal history of nicotine dependence
CPT/HCPCS: 71271